=== PATIENT | female | born 1990 | race Caucasian/White ===

== ENCOUNTER → 2020-11-29 01:08 | Outpatient (CLI) | payer BC, SELFPAY ==
[2020-11-29 18:28] LABS: SARS-CoV-2 RNA PCR Negative
== END ==
PROVIDERS: PCP Family Medicine Sports Medicine; Visit Provider Internal Medicine Gastroenterology
DX: Z01.812 Encounter for preprocedural laboratory examination (principal); Z20.822 Contact with and (suspected) exposure to COVID-19
CPT/HCPCS: C9803; U0003; U0005

== ENCOUNTER 2020-12-02 01:28 | Day surgery (SDC) | payer BC, SELFPAY ==
[2020-11-24 12:44] VITALS: BMI 45.8
--- NOTE | 2020-12-02 09:50 | P.PNAN_ITS ---
Anes - Initial Pre Proc Eval Procedure: Operation Date: 12/02/20 13:00 Proposed Procedures p Esophagogastroduodenoscopy - Jose Blanton MD Date/Time: 12/02/20 09:50 Surgeon: Jose Blanton MD Pre Op Diagnosis: nausea, vomiting Patient Data Age: 30 Gender: F Height: 1.55 m Weight: 110 kg Allergies Allergy/AdvReac Type Severity Reaction Status Date / Time No Known Allergies Allergy Unverified 12/02/20 11:58 Home Medications Medication Instructions Recorded Confirmed Type sertraline 25 mg tablet 25 mg PO DAILY 11/18/20 12/02/20 History aripiprazole 5 mg PO DAILY 11/24/20 11/24/20 History Patient hx anesthesia problems: none Family hx anesthesia problems: none [facility] Past Medical History Medical History (Updated 12/02/20 @ 09:51 by Isac Hopper MD) Anxiety Depression Morbidly obese Social History Social History (Updated 11/18/20 @ 11:17 by Vira Kirkland CMA) Smoking status: Never smoker Alcohol intake: never Substance use: never Substance use type: does not use Living arrangements: with family Gender identity (if verbalized by the patient): Female Spiritual care concerns: No Anes - Eval Final PreProcedure Day of Procedure 12/02/20 09:50 Patient weight: obese Heart: regular rate and rhythm Lungs: clear to auscultation and normal air movement Airway: Mallampati scale class II Neurological: alert and oriented Last oral intake: >/= 8 hours ASA classification: III Emergent: no Anesthetic plan: proceed Anesthesia type and monitoring: general GIVS Informed Consent: The patient's anesthetic plan and its attendant risks and benefits were discussed with the patient/family/POA. Questions were solicited and answers provided to the satisfaction of the patient/family/POA.
[2020-12-02 12:00] VITALS: BP 109/56; PULSE 91; RESP 18; TEMP 36.7; O2SAT 100
[2020-12-02] MEDS: LACTATED RINGERS 1,000 ML 150 ML IV CONT (12:12)
--- NOTE | 2020-12-02 13:26 | WPDHPUPDATE1 ---
History and Physical Update Update Date/Time: 12/02/20 13:26 History and Physical has been reviewed, including an updated exam of the patient. There are NO changes in the patient's condition. Risks, benefits, and alternatives have been discussed and questions answered. Patient agrees to proceed with procedure.
[2020-12-02 13:50] VITALS: BP 85/49; PULSE 87; RESP 22; O2SAT 100
[2020-12-02 14:00] VITALS: BP 90/55; PULSE 83; RESP 16; O2SAT 100
[2020-12-02 14:10] VITALS: BP 107/66; PULSE 77; RESP 17; O2SAT 100
== END 2020-12-02 14:22 | disposition home or self-care (01) ==
PROVIDERS: PCP Family Medicine Sports Medicine; Visit Provider Internal Medicine Gastroenterology
PROC: 0DJ08ZZ Inspection of Upper Intestinal Tract, Via Natural or Artificial Opening Endoscopic (ICD-10-PCS; CPT 43235; principal; 2020-12-02 13:00)
DX: R11.0 Nausea (principal); K29.50 Unspecified chronic gastritis without bleeding; F41.8 Other specified anxiety disorders; E66.01 Morbid (severe) obesity due to excess calories; Z68.41 Body mass index [BMI] 40.0-44.9, adult
CPT/HCPCS: 43239; 88305; J2704; J7120

== ENCOUNTER 2021-03-14 20:15 | Emergency (ER) | payer BC, SELFPAY ==
--- NOTE | ~2021-03-14 | XR_ITS ---
XR chest 1V portable 03/14/2021 21:33 Indication: Shortness of breath. Covid. Procedure: AP portable chest Comparison: No prior studies for comparison. Findings: Patchy bilateral infiltrates of the mid and lower lung zones. No pleural effusion or pneumo thorax. No acute osseous abnormality. Impression: 1: Patchy bilateral infiltrates of the mid and lower lung zones, suspicious for pneumonia. Reviewed, dictated and finalized at location A. Impression: 1: Patchy bilateral infiltrates of the mid and lower lung zones, suspicious for pneumonia.
[2021-03-14 20:31] VITALS: BP 129/59; PULSE 93; RESP 16; TEMP 36.4; O2SAT 98
--- NOTE | 2021-03-14 20:33 | ECG_ITS ---
Measurements Intervals [place] Rate: 91 P: 44 NE: 125 QRS: 36 QRSD: 82 T: 7 QT: 344 QTc: 425 Interpretive Statements SINUS RHYTHM VENTRICULAR PREMATURE COMPLEX LOW QRS VOLTAGE IN PRECORDIAL LEADS BORDERLINE T WAVE ABNORMALITY- ANT/INF LEADS BASELINE ARTIFACT- I, II, III BORDERLINE ECG Electronically Signed On 03-15-2021 6:04:41 CDT by Lon Santacruz D.O.
[2021-03-14 20:41] LABS: Basophils Percent Auto 0.4 % (0.2-1.2); Eosinophils Absolute Auto 0.1 K/mm3 (0-0.3); Eosinophils Percent Auto 1.8 % (0-4.4); Hematocrit 42.4 % (37.0-47.0); Hemoglobin 14.2 g/dL (12.0-15.0); Immature Granulocyte Absolute 0.02 K/mm3 (0.00-0.031); Immature Granulocyte Percent A 0.4 % (0-0.5); Lymphocytes Absolute Auto 3.02 K/mm3 (0.9-3.2); Lymphocytes Percent Auto 55.7 % (18.3-44.2); Mean Corpuscular HGB Conc 33.5 g/dl (32-36); Mean Corpuscular Hemoglobin 29.2 pg (26-34); Mean Corpuscular Volume 87.1 fl (80-100); Mean Platelet Volume 11.1 fl (7.4-10.4); Monocytes Absolute Auto 0.3 K/mm3 (0.1-0.6); Monocytes Percent Auto 6.1 % (2.6-8.5); Neutrophils Absolute Auto 1.9 K/mm3 (1.3-6.7); Neutrophils Percent Auto 35.6 % (45.5-73.1); Platelet Count Result 194 k/mm3 (150-375); Red Blood Count 4.87 M/mm3 (4.2-5.4); Red Cell Distribution Width 12.3 % (11.5-14.5); White Blood Count 5.4 K/mm3 (4.5-10.0)
[2021-03-14 20:50] LABS: Anion Gap 7 mmol/L (8-16); Blood Urea Nitrogen 11 mg/dL (7-17); Calcium 9.7 mg/dL (8.4-10.2); Carbon Dioxide 25 mmol/L (22-30); Chloride 111 mmol/L (98-107); Estimated CRCL calculation 101 ml/min; Estimated Glomerular Filt Rate > 60; Glucose 92 mg/dL (65-105); Potassium 3.9 mmol/L (3.4-5.0); Sodium 143 mmol/L (137-145)
--- NOTE | 2021-03-14 22:00 | ED.SOB ---
HPI - SOB/Dyspnea General Chief Complaint: Shortness of Breath/Dyspnea Stated Complaint: shortness of breath Time Seen by Provider: 03/14/21 21:38 History of Present Illness HPI Narrative: Mild shortness of breath for several days, feeling worse. Associated with mild pleuritic chest pain. She is also feeling fatigued. She was diagnosed with COVID-19 11 days ago. No fever, nausea, vomiting, diarrhea. Related Data Home Medications Medication Instructions Recorded Confirmed sertraline 25 mg tablet 25 mg PO DAILY 11/18/20 12/02/20 aripiprazole 5 mg PO DAILY 11/24/20 11/24/20 Allergies Allergy/AdvReac Type Severity Reaction Status Date / Time No Known Allergies Allergy Unverified 12/02/20 11:58 Review of Systems Review of Systems: All systems reviewed & are unremarkable except as noted in HPI and below Constitutional: Constitutional: Reports fever(s) Eyes: Eyes: Reports no additional eye complaints ENT: Denies sore throat Respiratory: Respiratory: Reports as per HPI Gastrointestinal: Gastrointestinal: Reports as per HPI Neurologic: Reports system reviewed and no additional complaints, except as documented PMF Past Medical History Medical History Anxiety Depression Morbidly obese Nausea Social History Social History Smoking status: Never smoker Alcohol intake: never Substance use: never Substance use type: does not use Gender identity (if verbalized by the patient): Female Spiritual care concerns: No Exam Const: General: healthy appearing, no acute distress and alert Orientation/consciousness: patient oriented x3 HENMT: Head: normal to inspection Neck: Neck: normal visual inspection and no lymphadenopathy Resp: Effort & Inspection: normal respiratory effort Auscultation: no rales, no rhonchi and wheezes Cardio: Jugular venous distension: no JVD Rate: regular rate Rhythm: regular rhythm Heart sounds: no murmurs GI: Inspection: non-distended GI Palp: Yes Soft to palpation and No Tenderness to palpation present (GI) Skin: General skin exam: normal color Neuro: General: patient oriented x3 and moves all extremities Speech: normal speech Extrem: General: no edema Psych: Appearance: well kempt Course Vital Signs Vital signs: Vital Signs Temperature 36.4 C 03/14/21 20:31 Pulse Rate 93 03/14/21 20:31 Respiratory Rate 16 03/14/21 20:31 Blood Pressure 129/59 L 03/14/21 20:31 Pulse Oximetry 98 03/14/21 20:31 Temperature 36.4 C 03/14/21 20:31 Pulse Rate 74 03/14/21 23:00 Respiratory Rate 20 03/14/21 23:00 Blood Pressure 127/60 03/14/21 23:00 Pulse Oximetry 98 03/14/21 23:00 MDM - SOB/Dyspnea MDM Narrative Medical decision making narrative: COVID-19 pneumonia. Normal vitals signs. Differential Diagnosis Differential diagnosis: Likely community acquired pneumonia and other (COVID) Medical Records Attestation: I reviewed the patient's medical records. Lab Data Result diagrams: 03/14/21 20:36 03/14/21 20:36 Labs: Lab Results 03/14/21 03/14/21 Range/Units 20:36 20:36 WBC 5.4 (4.5-10.0) K/mm3 RBC 4.87 (4.2-5.4) M/mm3 Hgb 14.2 (12.0-15.0) g/dL Hct 42.4 (37.0-47.0) % MCV 87.1 (80-100) fl MCH 29.2 (26-34) pg MCHC 33.5 (32-36) g/dl RDW 12.3 (11.5-14.5) % Plt Count 194 (150-375) k/mm3 MPV 11.1 H (7.4-10.4) fl Immature Gran % (Auto) 0.4 (0-0.5) % Neut % (Auto) 35.6 L (45.5-73.1) % Lymph % (Auto) 55.7 H (18.3-44.2) % Mobile % (Auto) 6.1 (2.6-8.5) % Eos % (Auto) 1.8 (0-4.4) % Baso % (Auto) 0.4 (0.2-1.2) % Lymph # (Auto) 3.02 (0.9-3.2) K/mm3 Mobile # (Auto) 0.3 (0.1-0.6) K/mm3 Eos # (Auto) 0.1 (0-0.3) K/mm3 Baso # (Auto) 0.0 (0.0-0.1) K/mm3 Abs Immat Gran (auto) 0.02 (0.00-0.031) K/mm3 Absolute Neuts (auto) 1
[2021-03-14] MEDS: KETOROLAC (*BKC) 60 MG/2 ML VIAL IM (22:16)
[2021-03-14] MEDS: predniSONE 20 MG TABLET 60 MG PO (22:17)
[2021-03-14] MEDS: IPRATROPIUM BR 0.02% INH SOLN 0.5 MG/2.5 ML VIAL INHALATION (22:19)
[2021-03-14] MEDS: ALBUTEROL SULFATE NEB 2.5 MG/0.5 ML INH 5 MG INHALATION (22:19)
[2021-03-14 22:20] VITALS: PULSE 79; RESP 20
[2021-03-14 23:00] VITALS: BP 127/60; PULSE 74; RESP 20; O2SAT 98
== END 2021-03-14 23:03 | disposition home or self-care (01) ==
PROVIDERS: Emergency Medicine; Emergency Provider Emergency Medicine; PCP Family Medicine Sports Medicine
DX: U07.1 COVID-19 (principal); J12.82 Pneumonia due to coronavirus disease 2019; F41.9 Anxiety disorder, unspecified; F32.9 Major depressive disorder, single episode, unspecified; E66.01 Morbid (severe) obesity due to excess calories; Z68.41 Body mass index [BMI] 40.0-44.9, adult; I49.3 Ventricular premature depolarization; R94.31 Abnormal electrocardiogram [ECG] [EKG]
CPT/HCPCS: 36415; 71045; 80048; 85025; 93005; 94640; 96372; 99284; J1885; J7512

== ENCOUNTER 2021-04-17 07:32 | Emergency (ER) | payer BC, SELFPAY ==
[2021-04-17 07:39] VITALS: BP 94/70; PULSE 96; RESP 18; TEMP 36.2; O2SAT 100
[2021-04-17 08:15] VITALS: PULSE 97; RESP 18; O2SAT 100
[2021-04-17 08:16] VITALS: BP 100/65; PULSE 88; RESP 14; O2SAT 100
--- NOTE | 2021-04-17 08:50 | ED.GENADULT ---
HPI - General Adult General Chief complaint: Neuro Symptoms/Deficit Stated complaint: facial tingling/sob and ear pain Time Seen by Provider: 04/17/21 08:25 Source: patient and RN notes reviewed Mode of arrival: ambulatory Limitations: no limitations History of Present Illness HPI narrative: This is a 30 year old female who presents for evaluation of left ear pain. Patient reports she has had 2 days left ear pain and swelling. She has been using over the counter ear drops without improvement. She denies fever or chills. She reports sore throat. She also was concerned because last night she had tingling to her entire face. She denies any focal deficits. She also denies weakness. She deneis swimming. She denies chest pain, sob, anxiety. Related Data Home Medications Medication Instructions Recorded Confirmed sertraline 25 mg tablet 25 mg PO DAILY 11/18/20 12/02/20 aripiprazole 5 mg PO DAILY 11/24/20 11/24/20 topiramate 04/17/21 Allergies Allergy/AdvReac Type Severity Reaction Status Date / Time No Known Allergies Allergy Unverified 12/02/20 11:58 Review of Systems Review of Systems: All systems reviewed & are unremarkable except as noted in HPI and below PMFSH Past Medical History Medical History Anxiety Depression Morbidly obese Nausea Social History Social History Smoking status: Never smoker Alcohol intake: never Substance use: never Substance use type: does not use Gender identity (if verbalized by the patient): Female Spiritual care concerns: No Exam Const: General: no acute distress and alert Nutritional Appearance: obese Orientation/consciousness: patient oriented x3 HENMT: Head: normocephalic and atraumatic Ears: TM normal on the right, Abnormal EAC present edema and EAC tenderness on the left and other (left TM dull) Face and sinus: normal facial exam, sinuses nontender and face symmetric Mouth: Yes Normal oral and palatal mucosa present, Yes lip normal, Yes tongue normal, Yes oropharynx normal and Yes moist mucous membranes Throat: posterior oropharynx normal, tonsils normal and uvula midline Eyes: EOM: EOMs intact bilaterally Resp: Effort & Inspection: normal respiratory effort and no retractions Auscultation: clear to auscultation bilaterally Cardio: Rate: regular rate Rhythm: regular rhythm Heart sounds: no murmurs GI: GI Palp: Yes Soft to palpation, No Tenderness to palpation present (GI) and No Guarding due to palpation present (GI) Auscultation: normal bowel sounds Neuro: General: patient oriented x3 and moves all extremities Course Reevaluation(s) Reevaluation #1: I Discussed with patient that she will be treated for otitis external and otitis media. facial symmetry present, no focal deficit Date: 04/17/21 Time: 09:15 Vital Signs Vital signs: Vital Signs Temperature 97.2 F L 04/17/21 07:39 Pulse Rate 96 04/17/21 07:39 Respiratory Rate 18 04/17/21 07:39 Blood Pressure 94/70 L 04/17/21 07:39 Pulse Oximetry 100 04/17/21 07:39 Temperature 97.2 F L 04/17/21 09:32 Pulse Rate 99 04/17/21 09:30 Respiratory Rate 15 04/17/21 09:30 Blood Pressure 99/69 L 04/17/21 09:30 Pulse Oximetry 100 04/17/21 09:30 Medical Decision Making Vital Signs Vital Signs: Vital Signs Temperature 97.2 F L 04/17/21 07:39 Pulse Rate 96 04/17/21 07:39 Respiratory Rate 18 04/17/21 07:39 Blood Pressure 94/70 L 04/17/21 07:39 Pulse Oximetry 100 04/17/21 07:39 Temperature 97.2 F L 04/17/21 09:32 Pulse Rate 99 04/17/21 09:30 Respiratory Rate 15 04/17/21 09:30 Blood Pressure 99/69 L 04/17/21 09:30 Pulse Oximetry 100 04/17/21 09:30 Discharge Plan Discharge Clinical Impression: Acute otitis externa of left ear Qualifiers: Otitis externa type: unspecified type Qualified Code(s): H60.502 - Uns
[2021-04-17] MEDS: IBUPROFEN 400 MG TABLET 800 MG PO (09:04)
[2021-04-17 09:30] VITALS: BP 99/69; PULSE 99; RESP 15; O2SAT 100
[2021-04-17 09:32] VITALS: TEMP 36.2
== END 2021-04-17 09:32 | disposition home or self-care (01) ==
PROVIDERS: Emergency Provider General Practice; PCP Family Medicine Sports Medicine
DX: H60.502 Unspecified acute noninfective otitis externa, left ear (principal); F41.9 Anxiety disorder, unspecified; F32.9 Major depressive disorder, single episode, unspecified; E66.01 Morbid (severe) obesity due to excess calories; Z68.41 Body mass index [BMI] 40.0-44.9, adult
CPT/HCPCS: 99283; A9270

== ENCOUNTER 2022-05-12 09:00 | Outpatient (RCR) | payer BC, SELFPAY | END 2022-07-31 10:20 | disposition home or self-care (01) | LOC: ANHDMC 09:00 | PROVIDERS: PCP Family Medicine Sports Medicine; Visit Provider Obstetrics & Gynecology | DX: O24.319 Unspecified pre-existing diabetes mellitus in pregnancy, unspecified trimester (principal); Z3A.00 Weeks of gestation of pregnancy not specified; Z71.89 Other specified counseling | CPT/HCPCS: G0108 ==

== ENCOUNTER 2022-06-02 23:30 | Observation (INO) | payer BC, SELFPAY ==
[2022-06-02 23:47] VITALS: BP 102/62; PULSE 89
[2022-06-03] VITALS (9 sets, daily range): BP systolic 93–107; BP diastolic 44–55; PULSE 76–89; BMI 49.1
--- NOTE | 2022-06-03 02:00 | OBADM ---
This patient, Viry Hi, admitted to the OB room Labor/Delivery/Recovery 120 for observation. Patient/family oriented to hospital policies and general routines including ID bracelet, bed and alarms, visiting hours, pain management, procedures, bathroom and other care routines, personal items, smoking policy, room service/diet, and visiting hours. Patient/Family are encouraged to report perceived risks to care and to ask questions if they do not understand what they are told or what they should do.
--- NOTE | 2022-07-03 11:49 | PM.OBTRLD ---
OB - Triage/Final Diagnosis Visit Information Comments/Additional reasons for admission: I have assessed the risk for this patient, Viry Hi, and determined that she would benefit from observation care. Final Diagnosis (1) Back pain affecting : Code(s): O99.891 - Other specified diseases and conditions complicating ; M54.9 - Dorsalgia, unspecified Status: Acute
== END 2022-06-03 02:20 | disposition home or self-care (01) ==
PROVIDERS: Admitting Provider Obstetrics & Gynecology; PCP Family Medicine Sports Medicine; Visit Provider Obstetrics & Gynecology
DX: O99.891 Other specified diseases and conditions complicating pregnancy (principal); M54.9 Dorsalgia, unspecified; R10.9 Unspecified abdominal pain; Z3A.36 36 weeks gestation of pregnancy
CPT/HCPCS: G0378; G0379

== ENCOUNTER 2022-06-10 10:54 | Outpatient (CLI) | payer BC, SELFPAY ==
--- NOTE | 2022-06-11 06:47 | PM.OBTRLD ---
OB - Triage/Final Diagnosis Visit Information Date of evaluation: 06/10/22 Reason for evaluation: other (Leaking fluid) Comments/Additional reasons for admission: I have assessed the risk for this patient, Viry Kristopher Pateles, and determined that she would benefit from observation care.
== END 2022-06-10 11:40 | disposition home or self-care (01) ==
LOC: ANHOBOP 11:38 → ANHLDR 11:39
PROVIDERS: PCP Family Medicine Sports Medicine; Visit Provider Obstetrics & Gynecology
DX: O41.8X90 Other specified disorders of amniotic fluid and membranes, unspecified trimester, not applicable or unspecified (principal); Z3A.00 Weeks of gestation of pregnancy not specified
CPT/HCPCS: 59025; 84112; 99199

== ENCOUNTER 2022-06-16 09:40 | Outpatient (RCR) | payer BC, SELFPAY ==
[2022-05-12 12:06] VITALS: BP 105/59; PULSE 98
[2022-05-19 11:05] VITALS: BP 96/64; PULSE 87
[2022-05-26 10:16] VITALS: BP 116/65; PULSE 90
[2022-05-31 09:51] VITALS: BP 103/49; PULSE 100
[2022-06-08 14:01] VITALS: BP 112/55; PULSE 108
[2022-06-16 10:40] VITALS: BP 94/51; PULSE 93
== END 2022-07-19 10:11 | disposition home or self-care (01) ==
LOC: ANHOBOP 09:40
PROVIDERS: PCP Family Medicine Sports Medicine; Visit Provider Obstetrics & Gynecology
DX: O24.419 Gestational diabetes mellitus in pregnancy, unspecified control (principal); Z86.16 Personal history of COVID-19; Z3A.33 33 weeks gestation of pregnancy; Z3A.35 35 weeks gestation of pregnancy; Z3A.36 36 weeks gestation of pregnancy; Z3A.37 37 weeks gestation of pregnancy
CPT/HCPCS: 59025

== ENCOUNTER 2022-06-17 10:59 | Outpatient (CLI) | payer BC, SELFPAY ==
[2022-06-17 11:23] LABS: Hemoglobin 10.2 g/dL (12.0-15.0); Mean Corpuscular Hemoglobin 30.1 pg (26-34); Mean Corpuscular Volume 88.5 fl (80-100); Mean Platelet Volume 11.1 fl (7.4-10.4); Platelet Count Result 192 k/mm3 (150-375); Red Blood Count 3.39 M/mm3 (4.2-5.4); Red Cell Distribution Width 14.5 % (11.5-14.5); White Blood Count 11.7 K/mm3 (4.5-10.0)
[2022-06-19 07:34] LABS: Rapid Plasma Reagin Non-Reactive (NonReactive)
== END 2022-06-17 11:00 | disposition home or self-care (01) ==
LOC: ANHLAB 11:01
PROVIDERS: PCP Family Medicine Sports Medicine; Visit Provider Obstetrics & Gynecology
DX: Z34.93 Encounter for supervision of normal pregnancy, unspecified, third trimester (principal); Z3A.00 Weeks of gestation of pregnancy not specified
CPT/HCPCS: 36415; 85027; 86592; 86850; 86900; 86901

== ENCOUNTER 2022-06-19 10:05 | Inpatient (IN) | payer BC, SELFPAY ==
--- NOTE | 2022-05-30 13:06 | PC.NURSE ---
Verified with OR schedule and patient--C/S with bilateral tubal ligation on 06/19/22 at 1200
[2022-06-19] VITALS (40 sets, daily range): BP systolic 85–151; BP diastolic 41–108; PULSE 55–99; RESP 11–18; TEMP 36.2–36.9; O2SAT 76–100; BMI 48.4
[2022-06-19] MEDS: LACTATED RINGERS 1,000 ML 125 ML IV CONT (10:49)
--- NOTE | 2022-06-19 10:51 | LDADM ---
This patient, Viry Hi, was admitted to Labor/Delivery/Recovery 119 on 06/19/22 at 10:05. Plans for labor, pain management and were discussed with patient. Patient/family oriented to hospital policies and general routines including ID bracelet, bed and alarms, visiting hours, pain management, procedures, bathroom and other care routines, personal items, smoking policy, room service/diet and guest tray routines, security routines, and visiting hours. Patient/Family are encouraged to report perceived risks to care and to ask questions if they do not understand what they are told or what they should do. See OBIX for further documentation.
--- NOTE | 2022-06-19 11:00 | P.PNAN_ITS ---
Anes - Initial Pre Proc Eval Procedure: Operation Date: 06/19/22 12:00 Proposed Procedures p Repeat Section with Bilateral Tubal Ligation - Kumar Avila MD Date/Time: 06/19/22 11:00 Surgeon: Kumar Avila MD Pre Op Diagnosis: C/S Patient Data Age: 31 Gender: F Height: 1.55 m Weight: 116.2 kg Last Vital Signs O2 Del Method Room Air 06/19/22 10:51 Allergies Allergy/AdvReac Type Severity Reaction Status Date / Time No Known Allergies Allergy Verified 05/30/22 12:47 Home Medications Medication Instructions Recorded Confirmed Type ferrous sulfate 325 mg (65 mg 325 mg PO DAILY 05/12/22 05/31/22 History iron) tablet vit no.95-ferrous 1 tablet PO DAILY 05/12/22 05/31/22 History fumarate 28 mg-folic acid 800 mcg tablet () risperidone 0.5 mg tablet 0.5 mg PO BID 05/12/22 05/31/22 History sertraline 100 mg tablet 100 mg PO HS 05/12/22 05/31/22 History Patient hx anesthesia problems: none Family hx anesthesia problems: none Results Review: All pre-operative results and documents have been reviewed as part of the pre- operative evaluation. [facility] Past Medical History Medical History (Updated 06/19/22 @ 11:00 by Isac Hopper MD) Anxiety Depression Diabetes Hyperlipidemia Morbidly obese Nausea Family History Family History (Updated 05/30/22 @ 12:50 by Jose Roberto Michel RN) Grandparent Coronary stent patent Heart attack Diabetes mellitus Grandparent Lung cancer Other Patient's mother is Social History Social History Smoking status: Never smoker Alcohol intake: never Substance use: never Substance use type: does not use Gender identity (if verbalized by the patient): Female Spiritual care concerns: No Anes - Eval Final PreProcedure Day of Procedure 06/19/22 11:00 Patient weight: morbidly obese Heart: regular rate and rhythm Lungs: clear to auscultation and normal air movement Airway: Mallampati scale class II Neurological: alert and oriented Last oral intake: >/= 8 hours ASA classification: III Emergent: no Anesthetic plan: proceed Anesthesia type and monitoring: regional spinal Results Review: All pre-operative results and documents have been reviewed as part of the pre- operative evaluation. Informed Consent: The patient's anesthetic plan and its attendant risks and benefits were discussed with the patient/family/POA. Questions were solicited and answers provided to the satisfaction of the patient/family/POA.
[2022-06-19 11:55] LABS: Glucose Point of Care 70 mg/dl (65-105)
--- NOTE | 2022-06-19 11:59 | PM.IMHP ---
H&P: HPI History of Present Illness Date/Time: 06/19/22 11:59 Chief Complaint: Here for c section. Narrative: 31 y/o at 39 1/7 weeks here for repeat . Also desires permanent contraception. GBS pos. A1 DM, well controlled. Review of Systems Review of Systems: All systems reviewed & are unremarkable except as noted in HPI and below PMFSH Past Medical History Medical History (Updated 06/19/22 @ 12:04 by Kumar Avila MD) Anxiety Depression Diabetes Hyperlipidemia Morbidly obese Nausea Surgical History Surgical History (Updated 06/19/22 @ 12:02 by Kumar Avila MD) History of delivery Family History Family History Grandparent Coronary stent patent Heart attack Diabetes mellitus Grandparent Lung cancer Other Patient's mother is Social History Social History Smoking status: Never smoker Alcohol intake: never Substance use: never Substance use type: does not use Gender identity (if verbalized by the patient): Female Spiritual care concerns: No Meds Home Medications and Allergies Home Medications Medication Instructions Recorded Confirmed Type ferrous sulfate 325 mg (65 mg 325 mg PO DAILY 05/12/22 05/31/22 History iron) tablet vit no.95-ferrous 1 tablet PO DAILY 05/12/22 05/31/22 History fumarate 28 mg-folic acid 800 mcg tablet () risperidone 0.5 mg tablet 0.5 mg PO BID 05/12/22 05/31/22 History sertraline 100 mg tablet 100 mg PO HS 05/12/22 05/31/22 History Allergies Allergy/AdvReac Type Severity Reaction Status Date / Time No Known Allergies Allergy Verified 05/30/22 12:47 Vital Signs Vital Signs - 24 hr 06/19/22 10:51 06/19/22 10:59 Pulse Rate 90 Blood Pressure 108/68 Oxygen Delivery Room Air Exam Const: Orientation/consciousness: patient oriented x3 Other: Well-developed, well-nourished female in no acute distress. Neck: Thyroid: thyroid normal Lymphatic: no lymphadenopathy noted (in neck, axilla or inguinal nodes) Resp: Effort & Inspection: normal respiratory effort Auscultation: clear to auscultation bilaterally Cardio: Rate: regular rate Rhythm: regular rhythm Heart sounds: S1 normal heart sound present and S2 normal heart sound present GI: Other: ABD: Soft, nontender, nondistended, gravid. NST reactive. TOCO: no contractions. No guarding or rebound tenderness. No hepatosplenomegaly. : General: Yes no CVA tenderness Other: Cervix closed. Back/Spine/Pelvis: Back: no CVA tenderness Skin: General skin exam: normal color and no rashes or lesions noted Neuro: General: patient oriented x3 Extrem: Other: Extremities: nontender with no edema Psych: Mental Status: mental status grossly normal Affect: normal affect Assessment and Plan Assessment and plan (1) Gestational diabetes mellitus: Code(s): O24.419 - Gestational diabetes mellitus in , unspecified control Status: Acute Assessment and Plan: A: IUP at 39 1/7 weeks, with prior , desiring repeat. Also desiring permanent contraception. P: Offered repeat LTCS with concurrent bilateral tubal ligation. She understands there are temporary methods of contraception available to her. She understands that there are nonsurgical options as well as surgical options. She understands that tubal ligation will render her permanently sterile. She understands that there is a failure rate associated with tubal ligation, as well as an inherent ectopic gestation risk. Furthermore, she understands risks of surgery to include risks of anesthesia, risks of pain, infection, bleeding, blood products, thromboembolic phenomena and damage to adjacent structures such as bowel, bladder, ureters, blood vessels and nerves. She understands all these risks and elects to proceed with siddiqi
[2022-06-19] MEDS: LACTATED RINGERS 1,000 ML 999 ML IV CONT (12:01)
--- NOTE | 2022-06-19 12:04 | WPDHPUPDATE1 ---
History and Physical Update Update Date/Time: 06/19/22 12:04 History and Physical has been reviewed, including an updated exam of the patient. There are NO changes in the patient's condition. Risks, benefits, and alternatives have been discussed and questions answered. Patient agrees to proceed with procedure.
[2022-06-19] MEDS: KETOROLAC 30 MG/ML VIAL (*BKC) IV PUSH (13:03)
--- NOTE | 2022-06-19 13:13 | PM.OBPRVD ---
OB - Delivery Note Procedure Delivery date: 06/19/22 Procedure: Procedures Operation Date: 06/19/22 12:00 <No data on this case meets the specified criteria> Repeat low transverse delivery with concurrent bilateral tubal ligation via modified [place] technique Events: Gestational Diabetes Delivery monitor: External FHT and External Uterine Route of delivery: Specimen: Yes (cord blood, placenta, segments of bilateral Fallopian tubes) Quantitative Blood Loss (ml): 750 Anesthesia type: Spinal Disposition: PACU Complications: None Narrative: The patient was taken to the operating room where she was prepared and draped in the usual sterile fashion in dorsal supine position with a leftward tilt. She received cefazolin preoperatively. Spinal anesthesia was found to be adequate. A Pfannenstiel skin incision was made along the previous scar line and was carried through to the underlying layer of the fascia. The fascia was incised in the midline and the incision was extended laterally. The fascia was dissected free of the underlying rectus muscles. The rectus muscles were in the midline. The peritoneum was identified, tented up and entered sharply. The peritoneal incision was extended superiorly and inferiorly with good visualization of the bladder. The bladder blade was placed. The vesicouterine peritoneum was identified, tented up and entered sharply. The incision was extended laterally and the bladder flap was developed. The bladder blade was replaced. The uterus was then incised sharply in a transverse fashion along the lower uterine segment. The incision was extended laterally. The infant's head was delivered atraumatically to the sterile field, followed by the body. The nose and mouth were bulb suctioned. After a delay, the cord was clamped and cut. The was handed off the field. Cord blood was collected. The placenta was removed manually and was passed off the field. The uterus was exteriorized and cleared of all clots and debris. The uterine incision was reapproximated using 0 Monocryl in a running, locked fashion. Excellent hemostasis resulted as did excellent reapproximation of the normal anatomy. The left fallopian tube was then identified by following it out to the fimbriated end. It was grasped in the midportion with a Ruben clamp and a loop of tube was ligated with a free tie of 0 plain gut. The tubal segment was then transected and the specimen was passed off to be sent to pathology. Hemostasis was excellent. Attention was turned to the right fallopian tube which was similarly identified, ligated and transected. Once again, excellent hemostasis resulted. The uterus was returned the abdomen. The pelvis was irrigated copiously with warmed normal saline. The bladder flap was treated with Hemaderm. Rigorous hemostasis was assured. The fascial layer was reapproximated using 0 Vicryl in a running fashion. Two interrupted sutures of 2-0 plain gut were used to reapproximate the subcutaneous tissue. The skin was closed with a running, subcuticular stitch of 4 0 Vicryl. Dermaflex was applied externally. Sponge, lap, needle and instrument counts were correct. The patient was taken to the recovery room in stable condition. The went to the nursery in stable condition. I was present and scrubbed the entire procedure. [place] Baby Date of : 06/19/22 Time of : 12:38 Weeks of gestation at delivery: 39 gender: Female Weight (pounds): 8 Weight (ounces): 5 presentation: vertex Placenta delivery description: Manual Removal and Normal Configuration Cord Vessel Description: 3 Vessels and Delayed Cord Clamping score one minute: 8 score five minutes: 9
--- NOTE | 2022-06-19 13:17 | PM.OBDSVD ---
DS: Admitting Diagnosis Discharge Date 06/21/22 Admitting Diagnosis IUP at 39 weeks GDM GBS colonization Prior , desires repeat Desired sterility DS: Discharge Diagnosis Discharge Diagnosis (1) GBS (group B Streptococcus carrier), +RV culture, currently : Code(s): O99.820 - Streptococcus B carrier state complicating Status: Acute (2) Unwanted fertility: Code(s): Z30.09 - Encounter for other general counseling and advice on contraception Status: Acute (3) Gestational diabetes mellitus: Code(s): O24.419 - Gestational diabetes mellitus in , unspecified control Status: Acute (4) History of delivery: Code(s): Z98.891 - History of uterine scar from previous surgery Status: Acute OB - DS: Summary OB Procedures : None OB Procedures Intrapartum: and Tubal ligation OB Procedures: : None Peripartum Data Procedures: Procedures Operation Date: 06/19/22 12:00 <No data on this case meets the specified criteria> Time Spent with Patient Time attestation: Total time spent providing and/or coordinating discharge services: DS: Data Data Completed and Pending Labs on day of discharge: Labs from last 24 hours 06/19/22 11:53 POC Capillary Glucose 70 Discharge Plan Discharge Attending physician on discharge: Kumar Avila Discharging Clinician: Kumar Avila Patient Disposition: Home, Self-Care Activity: may shower, may drive after 2 weeks and pelvic rest Diet: regular Wound Care Instructions: incision open to air Discharge Instructions: Call or return if temperature above 100.4? F, increased abdominal pain, increased vaginal bleeding or any new problems. Stand Alone Forms: General Discharge Information Follow-up/Referrals: Kumar Avila MD [Physician] - 4 Weeks Discharge Medications: New ibuprofen 600 mg tablet 600 mg PO Q6H PRN (Reason: cramps) Qty: 30 0RF ferrous sulfate 325 mg (65 mg iron) tablet 325 mg PO DAILY Qty: 30 0RF hydrocodone-acetaminophen 5-325 mg tablet 1 - 2 tablet PO Q6H PRN (Reason: pain) Qty: 30 0RF Continued sertraline 100 mg Tablet 100 mg PO HS ferrous sulfate 325 mg (65 mg iron) Tablet 325 mg PO DAILY risperidone 0.5 mg Tablet 0.5 mg PO BID PNV cmb#95-ferrous fumarate-FA [] 28 mg iron- 800 mcg Tablet 1 tablet PO DAILY Date of admission: 06/19/22 10:05 Primary Care Provider: Roya,Chuck Devlin Admitting Provider: Kumar Avila Attending physician on admission: Kumar Avila Condition: Stable
[2022-06-19] MEDS: OXYTOCIN 30 UNITS/NS 500 ML 30 UNITS/500 ML BAG 125 UNITS IV CONT (15:05)
--- NOTE | 2022-06-19 15:30 | PC.NURSE ---
Patient transferred to post room #284 via stretcher. Support person present. Oriented to unit, room, information board, rooming in, admission packet and security measures. Patient verbalizes understanding.
[2022-06-19] MEDS: ONDANSETRON INJ 4 MG/2 ML VIAL IV PUSH (17:23)
[2022-06-19] MEDS: diphenhydrAMINE HCl INJ 50 MG/ML VIAL 25 MG IV PUSH (19:16)
[2022-06-19] MEDS: IBUPROFEN 600 MG TABLET PO (19:31)
[2022-06-19] MEDS: HYDROcodone/acetaminophen (*CRX) 10-325 MG TABLET 1 TAB PO (19:34)
[2022-06-19] MEDS: DEXTROSE 5%/0.45% SOD CHL 1,000 ML 125 ML IV CONT (19:35)
[2022-06-19] MEDS: SIMETHICONE 80 MG TAB.CHEW PO (20:58)
[2022-06-20] VITALS: BP 107/72; PULSE 98; RESP 16; TEMP 36.8
[2022-06-20 04:00] VITALS: BP 108/62; PULSE 98; RESP 18; TEMP 36.2
[2022-06-20] MEDS: SIMETHICONE 80 MG TAB.CHEW PO ×2 (04:12→20:32)
[2022-06-20] MEDS: IBUPROFEN 600 MG TABLET PO ×3 (04:12→20:28)
[2022-06-20] MEDS: HYDROcodone/acetaminophen (*CRX) 10-325 MG TABLET 1 TAB PO ×4 (04:13→20:32)
[2022-06-20 05:59] LABS: Basophils Percent Auto 0.2 % (0.2-1.2); Eosinophils Percent Auto 0.3 % (0-4.4); Hematocrit 25.6 % (37.0-47.0); Hemoglobin 8.7 g/dL (12.0-15.0); Immature Granulocyte Absolute 0.14 K/mm3 (0.00-0.031); Immature Granulocyte Percent A 1.6 % (0-0.5); Lymphocytes Absolute Auto 1.04 K/mm3 (0.9-3.2); Lymphocytes Percent Auto 11.7 % (18.3-44.2); Mean Corpuscular Volume 88.3 fl (80-100); Mean Platelet Volume 12.5 fl (7.4-10.4); Monocytes Absolute Auto 0.6 K/mm3 (0.1-0.6); Monocytes Percent Auto 6.5 % (2.6-8.5); Neutrophils Absolute Auto 7.1 K/mm3 (1.3-6.7); Neutrophils Percent Auto 79.7 % (45.5-73.1); Platelet Count Result 166 k/mm3 (150-375); Red Cell Distribution Width 14.6 % (11.5-14.5); White Blood Count 8.9 K/mm3 (4.5-10.0)
[2022-06-20 08:05] VITALS: BP 102/62; PULSE 88; RESP 18; TEMP 36.4; O2SAT 99
[2022-06-20] MEDS: DOCUSATE SODIUM 100 MG CAPSULE PO ×2 (08:12→15:38)
[2022-06-20] MEDS: POLYSACCHARIDE IRON COMPLEX 150 MG CAPSULE PO ×2 (08:12→15:38)
--- NOTE | 2022-06-20 08:37 | WPDANLDPN2 ---
Anes-Prog Note L&D Date/Time: 06/20/22 08:37 Comfortable throughout: section Neuraxial method: spinal Epidural/Spinal procedure site: clean & non-tender Neuro status: Neuro function grossly intact. Cardiovascular status: normal Respiratory status: normal Airway patency: baseline Mental status: baseline Post-Op hydration status: normal Vital Signs: Last Vital Signs Temp 36.2 C L 06/20/22 04:00 Pulse 98 06/20/22 04:00 Resp 18 06/20/22 04:00 BP 108/62 06/20/22 04:00 Pulse Ox 98 06/19/22 15:45 O2 Del Method Room Air 06/20/22 04:00 Pain score (VAS): 10/31 I/O: Intake & Output 06/19/22 06/20/22 06/20/22 23:59 07:59 15:59 Intake Total 300 4000 Output Total 200 2500 Balance 100 1500 Post-procedural complaints: none Patient feedback: Patient satisfied with anesthetic care.
--- NOTE | 2022-06-20 08:37 | WPDANLDNPN2 ---
Anes-Prog Note L&D-Neuraxial Date/Time: 06/20/22 08:37 Neuraxial medications: intrathecal PF morphine Opiod-related complaints: none Patient feedback: Patient satisfied with post-operative pain management.
--- NOTE | 2022-06-20 08:42 | P.PNAN_ITS ---
Anes - Prog Note Post-Op Date/Time: 06/20/22 08:42 Cardiovascular status: normal Respiratory status: normal Airway patency: baseline Mental status: baseline Post-Op hydration status: normal Vital Signs: Last Vital Signs Temp 36.2 C L 06/20/22 04:00 Pulse 98 06/20/22 04:00 Resp 18 06/20/22 04:00 BP 108/62 06/20/22 04:00 Pulse Ox 98 06/19/22 15:45 O2 Del Method Room Air 06/20/22 04:00 Pain Score (VAS): 2/10 I/O: Intake & Output 06/19/22 06/20/22 06/20/22 23:59 07:59 15:59 Intake Total 300 4000 Output Total 200 2500 Balance 100 1500 Laboratory Tests 06/20/22 04:29 06/19/22 06/20/22 11:53 04:29 WBC 8.9 RBC 2.90 L Hgb 8.7 L Hct 25.6 L MCV 88.3 MCH 30.0 MCHC 34.0 RDW 14.6 H Plt Count 166 MPV 12.5 H Immature Gran % (Auto) 1.6 H Neut % (Auto) 79.7 H Lymph % (Auto) 11.7 L [place] % (Auto) 6.5 Eos % (Auto) 0.3 Baso % (Auto) 0.2 Lymph # (Auto) 1.04 [place] # (Auto) 0.6 Eos # (Auto) 0.0 Baso # (Auto) 0.0 Abs Immat Gran (auto) 0.14 H Absolute Neuts (auto) 7.1 H Absolute Nucleated RBC 0.0 Nucleated RBC % 0.0 POC Capillary Glucose 70 Post-procedural complaints: none Patient Feedback: Patient satisfied with anesthetic care.
[2022-06-20 12:13] VITALS: BP 115/56; PULSE 88; RESP 18; TEMP 36.2; O2SAT 98
--- NOTE | 2022-06-20 13:01 | PM.OBPNVD ---
OB - PN: Subj Subjective Date/time seen: 06/20/22 13:02 Narrative: Pain OK. Tolerating diet. OB - PN: Obj Data Labs CBC & Chem 7: 06/20/22 04:29 Labs: Laboratory Results - last 24 hr 06/20/22 04:29 WBC 8.9 RBC 2.90 L Hgb 8.7 L Hct 25.6 L MCV 88.3 MCH 30.0 MCHC 34.0 RDW 14.6 H Plt Count 166 MPV 12.5 H Immature Gran % (Auto) 1.6 H Neut % (Auto) 79.7 H Lymph % (Auto) 11.7 L [place] % (Auto) 6.5 Eos % (Auto) 0.3 Baso % (Auto) 0.2 Lymph # (Auto) 1.04 [place] # (Auto) 0.6 Eos # (Auto) 0.0 Baso # (Auto) 0.0 Abs Immat Gran (auto) 0.14 H Absolute Neuts (auto) 7.1 H Absolute Nucleated RBC 0.0 Nucleated RBC % 0.0 OB - PN A/P Plan Comments: A: POD#1, doing well. P: Routine care. Time Spent With Patient Time with patient: less than 15 minutes Exam Narrative: AVSS I/O OK ABD soft, nontender, fundus firm. Incision c/d/i. EXT nontender
[2022-06-20] MEDS: FLUTICASONE PROPIONATE 0.05% NA SPR 16 GM BTL (*BKC) 1 SPRAY NASAL ×2 (15:40→20:27)
[2022-06-20 20:00] VITALS: BP 103/56; PULSE 93; RESP 18; TEMP 36.6
[2022-06-20] MEDS: SERTRALINE HCL 50 MG TABLET 100 MG PO (20:27)
[2022-06-20] MEDS: risperiDONE 0.5 MG TABLET PO (20:28)
[2022-06-21] MEDS: HYDROcodone/acetaminophen (*CRX) 10-325 MG TABLET 1 TAB PO ×2 (05:25→10:23)
[2022-06-21] MEDS: SIMETHICONE 80 MG TAB.CHEW PO ×2 (05:26→10:23)
[2022-06-21] MEDS: IBUPROFEN 600 MG TABLET PO ×2 (05:26→12:45)
[2022-06-21 08:10] VITALS: BP 122/79; PULSE 98; RESP 16; TEMP 36.2; O2SAT 99
--- NOTE | 2022-06-21 08:59 | PM.OBPNVD ---
OB - PN: Subj Subjective Date/time seen: 06/21/22 08:59 Narrative: Pain OK. Tolerating diet. Would like to go home. OB - PN: Obj Data Labs CBC & Chem 7: 06/20/22 04:29 OB - PN A/P Plan Comments: A: POD#2, doing well. Wants to go home. P: Home to f/u 4 weeks. Exam Narrative: AVSS ABD soft, nontender, fundus firm. Incision c/d/i. EXT nontender
--- NOTE | 2022-06-21 10:00 | PC.NURSE ---
PT introductions made and plan of care discussed per post , post op c section, pain management, bottle feeding, daily care activities and pending discharge to home. PT and spouse both recipients of such instructions and no barriers to learning noted at this time . PT received such instructions per one to one discussion, mom baby care guide and demonstrations this shift. PT verbalized understanding of such care.
[2022-06-21] MEDS: FLUTICASONE PROPIONATE 0.05% NA SPR 16 GM BTL (*BKC) 1 SPRAY NASAL (10:22)
[2022-06-21] MEDS: DOCUSATE SODIUM 100 MG CAPSULE PO (10:23)
[2022-06-21] MEDS: risperiDONE 0.5 MG TABLET PO (10:23)
[2022-06-21] MEDS: POLYSACCHARIDE IRON COMPLEX 150 MG CAPSULE PO (10:24)
--- NOTE | 2022-06-21 12:30 | PC.NURSE ---
PT received discharge instructions per protocol and verbalized understanding of such care.
--- NOTE | 2022-06-21 13:00 | PC.NURSE ---
PT discharged to home ambulatory to waiting car accompanied by significant other and infant. follow up appts confirmed
[2022-06-22 09:43] VITALS: BP 132/67; PULSE 86; RESP 20; TEMP 36.9; O2SAT 100
== END 2022-06-21 13:00 | disposition home or self-care (01) | DRG 785 ==
LOC: ANHLDR 10:13 → ANHOB2 15:36
PROVIDERS: Admitting Provider Obstetrics & Gynecology; PCP Family Medicine Sports Medicine; Visit Provider Obstetrics & Gynecology
PROC: 10D00Z1 Extraction of Products of Conception, Low, Open Approach (ICD-10-PCS; CPT 59514; principal; 2022-06-19 12:00)
DX: O34.211 Maternal care for low transverse scar from previous cesarean delivery (principal); Z37.0 Single live birth; Z3A.39 39 weeks gestation of pregnancy; O24.429 Gestational diabetes mellitus in childbirth, unspecified control; O99.824 Streptococcus B carrier state complicating childbirth; Z30.2 Encounter for sterilization; O99.344 Other mental disorders complicating childbirth; F41.9 Anxiety disorder, unspecified; F32.A Depression, unspecified
CPT/HCPCS: 36415; 82948; 85025; 88302; 88307; A9270; J0131; J1200; J1885; J2274; J2405; J2590; J7120

== ENCOUNTER 2023-08-19 13:38 | Emergency (ER) | payer BC, SELFPAY ==
[2023-08-19] VITALS (17 sets, daily range): BP systolic 96–134; BP diastolic 58–82; PULSE 87–122; RESP 13–23; TEMP 36.4; O2SAT 95–100
[2023-08-19 14:04] LABS: Basophils Percent Auto 0.3 % (0.2-1.2); Eosinophils Absolute Auto 0.1 K/mm3 (0-0.3); Eosinophils Percent Auto 0.4 % (0-4.4); Hemoglobin 15.2 g/dL (12.0-15.0); Immature Granulocyte Absolute 0.07 K/mm3 (0.00-0.031); Immature Granulocyte Percent A 0.5 % (0-0.5); Lymphocytes Absolute Auto 1.07 K/mm3 (0.9-3.2); Lymphocytes Percent Auto 7.3 % (18.3-44.2); Mean Corpuscular HGB Conc 32.3 g/dl (32-36); Mean Corpuscular Hemoglobin 29.8 pg (26-34); Mean Corpuscular Volume 92.2 fl (80-100); Mean Platelet Volume 12.2 fl (7.4-10.4); Monocytes Absolute Auto 0.5 K/mm3 (0.1-0.6); Monocytes Percent Auto 3.2 % (2.6-8.5); Neutrophils Percent Auto 88.3 % (45.5-73.1); Platelet Count Result 212 k/mm3 (150-375); White Blood Count 14.7 K/mm3 (4.5-10.0)
[2023-08-19 14:14] LABS: Alanine Aminotransferase 24 U/L (6-35); Albumin Level 5.1 g/dL (3.5-5.1); Alkaline Phosphatase 99 U/L (38-126); Anion Gap 14 mmol/L (8-16); Aspartate Amino Transferase 25 U/L (14-36); Bilirubin,Total 0.6 mg/dL (0.2-1.3); Blood Urea Nitrogen 14 mg/dL (7-17); Carbon Dioxide 19 mmol/L (22-30); Chloride 107 mmol/L (98-107); Estimated Glomerular Filt Rate > 60; Glucose 136 mg/dL (65-110); Lipase 68 U/L (23-300); Potassium 4.4 mmol/L (3.4-5.0); Sodium 140 mmol/L (137-145)
--- NOTE | 2023-08-19 14:57 | ED.NAVMDI ---
HPI - Nausea/Vomiting/Diarrhea General Chief complaint: Nausea/Vomiting/Diarrhea Stated complaint: N/V/D SINCE SUNDAY AM Time Seen by Provider: 08/19/23 14:35 Source: patient Mode of arrival: ambulatory Limitations: no limitations History of Present Illness HPI Narrative: 32 years old white female came to the ED by private car complaining of severe vomiting and diarrhea started this morning after waking up associated with chills and abdominal cramps. She denies sick contact. Does not work, have 2 children who are doing okay .patient started her menstrual cycle yesterday she denies smoking, drinking or using drugs. Patient reports itching rash on the back of the neck started 2 days ago. MD elicited complaint: nausea, vomiting and diarrhea Related Data Home Medications Medication Instructions Recorded Confirmed ferrous sulfate 325 mg (65 mg 325 mg PO DAILY 05/12/22 06/19/22 iron) tablet vit no.95-ferrous 1 tablet PO DAILY 05/12/22 06/19/22 fumarate 28 mg-folic acid 800 mcg tablet () risperidone 0.5 mg tablet 0.5 mg PO BID 05/12/22 06/19/22 sertraline 100 mg tablet 100 mg PO HS 05/12/22 06/19/22 Allergies Allergy/AdvReac Type Severity Reaction Status Date / Time No Known Allergies Allergy Verified 08/19/23 14:59 Review of Systems Review of Systems: All systems reviewed & are unremarkable except as noted in HPI and below PMFSH Past Medical History Medical History Anxiety Depression Diabetes Hyperlipidemia Morbidly obese Nausea Surgical History Surgical History History of delivery Family History Family History Grandparent Coronary stent patent Heart attack Diabetes mellitus Grandparent Lung cancer Other Patient's mother is Social History Social History Smoking status: Never smoker Alcohol intake: never Substance use: never Substance use type: does not use Living arrangements: with family Occupation/Education: occupation Gender identity (if verbalized by the patient): Female Spiritual care concerns: No Exam Narrative: General appearance: Well-developed, well-nourished Skin: Normal color, itching rash/maculopapular at the back of the neck Head: Normocephalic, nontraumatic Eyes: Clear conjunctiva ENT: Oropharynx normal, ears normal, nose normal Neck: Supple, nontender Chest and respiratory: Airway patent, no respiratory distress, no accessory muscle use Heart: Regular rate/rhythm Abdomen: Soft, nontender, no organomegaly, quiet bowel sounds Vascular: Normal peripheral pulses, normal capillary refill. Musculoskeletal: Normal range of motion, nontender back Neurologic: Alert and oriented ?3, BUYER GRAIN is normal as tested, no gross motor deficit Course Vital Signs Vital signs: Vital Signs Temperature 36.4 C 08/19/23 13:38 Pulse Rate 114 H 08/19/23 13:38 Respiratory Rate 16 08/19/23 13:38 Blood Pressure 96/69 L 08/19/23 13:38 Pulse Oximetry 99 08/19/23 13:38 Oxygen Delivery Room Air 08/19/23 13:38 Temperature 36.4 C 08/19/23 13:38 Pulse Rate 114 H 08/19/23 18:40 Respiratory Rate 19 08/19/23 18:40 Blood Pressure 120/68 08/19/23 18:40 Pulse Oximetry 100 08/19/23 18:40 Oxygen Delivery Room Air 08/19/23 13:38 MDM - Nausea/Vomiting/Diarrhea MDM Narrative Medical decision making narrative: Patient presents with vomiting and diarrhea a lot started this morning. She denied respiratory symptoms. Also c
[2023-08-19] MEDS: SODIUM CHLORIDE 0.9% IV 2,000 ML 999 ML IV CONT (15:23)
[2023-08-19] MEDS: ONDANSETRON INJ 4 MG/2 ML VIAL 8 MG IV PUSH (15:24)
[2023-08-19 19:09] LABS: Appearance Urine Cloudy (Clear); Bacteria Urine Rare /hpf; Bilirubin Urine Negative (Negative); Blood Urine 3+ (Negative); Color Urine Yellow (Yellow); Glucose Urine UA Negative (Negative); Ketones Urine Negative (Negative); Leukocyte Esterase Ur 2+ LEU/UL (Negative); Nitrate Urine Negative (Negative); Protein Urine 1+ mg/dL (Negative); RBC Urine >100 /hpf (0-2); Specific Grav Ur 1.019 (1.001-1.035); Squamous Epithelial Cell Urine Few /hpf (Few); Urobilinogen Urine 0.2 mg/dL (<2.0); WBC Urine 51-100 /hpf
[2023-08-19 19:15] LABS: Add Urine Microscopic? YES
[2023-08-19 19:36] LABS: SARS-CoV-2 RNA PCR Negative (Negative)
== END 2023-08-19 20:23 | disposition home or self-care (01) ==
PROVIDERS: Preventive Medicine Aerospace Medicine; Emergency Provider Emergency Medicine; PCP Family Medicine Sports Medicine
DX: K52.9 Noninfective gastroenteritis and colitis, unspecified (principal); L30.9 Dermatitis, unspecified; N39.0 Urinary tract infection, site not specified; E11.9 Type 2 diabetes mellitus without complications; E78.5 Hyperlipidemia, unspecified; F41.9 Anxiety disorder, unspecified; F32.A Depression, unspecified; Z20.822 Contact with and (suspected) exposure to COVID-19
CPT/HCPCS: 36415; 80053; 81001; 81025; 83690; 85025; 87077; 87086; 87088; 87635; 96374; 99284; J2405; J7030

== ENCOUNTER 2023-09-19 16:22 | Emergency (ER) | payer BC, SELFPAY ==
--- NOTE | ~2023-09-19 | XR_ITS ---
EXAMINATION: XR chest 2V Exam Date/Time: 09/19/2023 16:50 COMPRESSION MOLDING MACHINE OPERATOR HISTORY: TIGHTNESS,DRY COUGH,POST COVID Comparison: 03/14/2021. RESULT: Lines, tubes, and devices: None. Lungs and pleura: Ill-defined patchy opacities in the right lower lung. Cardiomediastinal silhouette: Stable. Other: No acute osseous or upper abdominal finding. IMPRESSION: Subsegmental right lower lung opacities may represent atelectasis or pneumonia. Reviewed, dictated and finalized at location K. RESSION MOLDING MACHINE OPERATOR
[2023-09-19 16:35] VITALS: BP 100/70; PULSE 86; RESP 20; TEMP 37.1; O2SAT 95
--- NOTE | 2023-09-19 16:44 | ED.URI ---
HPI - URI/Sore Throat General Chief Complaint: Upper Respiratory Infection Stated Complaint: Tightness to Chest Time Seen by Provider: 09/19/23 16:35 Source: patient Mode of arrival: ambulatory Limitations: no limitations History of Present Illness HPI Narrative: Viry is a 32-year-old female patient presenting to the clinic today with complaints of chest tightness, nonproductive cough, and sore throat. She reports that she recently had COVID and had influenza prior to having COVID. Tested positive for COVID 2 weeks ago. Denies any fever or chills. States she does have some shortness of breath. MD elicited complaint: sore throat and nasal congestion Related Data Home Medications Medication Instructions Recorded Confirmed glutathione 500 mg capsule 500 mg PO DAILY 09/19/23 09/19/23 paroxetine HCl 25 mg 25 mg PO DAILY 09/19/23 09/19/23 tablet,extended release 24 hr topiramate 25 mg tablet 25 mg PO BID 09/19/23 09/19/23 Allergies Allergy/AdvReac Type Severity Reaction Status Date / Time iohexol Allergy Hives Verified 09/19/23 16:44 [From contrast - CT, X-RAY] Review of Systems Review of Systems: Pertinent positives per HPI. Patient denies any fever, chills, rash, headache, visual changes, dizziness, chest pain, palpitations, nausea, vomiting, diarrhea, constipation, abdominal pain, or any urinary issues. [facility] Past Medical History Medical History Anxiety Depression Diabetes Hyperlipidemia Morbidly obese Nausea Surgical History Surgical History History of delivery Family History Family History Grandparent Coronary stent patent Heart attack Diabetes mellitus Grandparent Lung cancer Other Patient's mother is Social History Social History Smoking status: Never smoker Alcohol intake: never Substance use: never Substance use type: does not use Living arrangements: with family Occupation/Education: occupation Gender identity (if verbalized by the patient): Female Spiritual care concerns: No Comments At the time of my signature, I reviewed and agree with the nursing past medical, surgical, social, and family history. There is no relevant family history pertinent to the patient complaint. Exam Narrative: General: Well-developed, obese, in no apparent distress Head: Normocephalic, atraumatic Eyes: Pupils equally round and reactive to light bilaterally, EOM intact, sclera and conjunctive clear, no discharge, lids normal Ears: TMs intact and congested, ear canals clear, no drainage, grossly hearing normal. Nose: Nares patent, clear nasal discharge, no inflammation, no sinus tenderness. Mouth: Oral pharynx without lesions or masses, good dentition, MMM. Neck: Supple, trachea midline, no enlargement of anterior or posterior cervical nodes, no thyroid masses or goiter palpable. Cardio: Regular rate and rhythm, s1 and s2 normal, no murmur appreciated. Resp: Faint crackles in the lower bases, no rhonchi, wheezing or rubs Course Course Emergency Course: Portions of this record may have been created with voice recognition software. Level of Care: Express Care Visit Vital Signs Vital signs: Vital signs reviewed MDM - URI/Sore Throat MDM Narrative Medical decision making narrative: At the time of visit patient is resting comfortably on the exam table. Patient is nontoxic appearing. SpO2 is 95% on room air. Strep test and chest x-ray was performed. Strep test was negative in the clinic today. Chest x-ray shows possible right lower lobe pneumonia. Will send in prescription for albuterol inhaler, Augmentin, and azithromycin. Supportive measures were discussed with the patient she voiced understanding discharge in
[2023-09-19 16:48] VITALS: BP 100/70; PULSE 86; RESP 20; TEMP 37.1; O2SAT 95
== END 2023-09-19 17:15 | disposition home or self-care (01) ==
PROVIDERS: Emergency Provider Nurse Practitioner Family; PCP Family Medicine Sports Medicine
DX: J18.9 Pneumonia, unspecified organism (principal); E11.9 Type 2 diabetes mellitus without complications; E78.5 Hyperlipidemia, unspecified; E66.01 Morbid (severe) obesity due to excess calories; Z68.41 Body mass index [BMI] 40.0-44.9, adult; F41.9 Anxiety disorder, unspecified; F32.A Depression, unspecified; Z86.16 Personal history of COVID-19
CPT/HCPCS: 71046; 87081; 87880; 99213; G0463

== ENCOUNTER 2023-09-21 20:32 | Emergency (ER) | payer BC, SELFPAY ==
[2023-09-21 20:35] VITALS: BP 133/82; PULSE 91; RESP 20; TEMP 35.7; O2SAT 99
[2023-09-21 21:01] VITALS: O2SAT 100; O2SAT 99
--- NOTE | 2023-09-21 21:04 | PC.NURSE ---
Patient states that she was dx with pneumonia three days ago and given azithromycin, Augmentin, and an inhaler.
--- NOTE | 2023-09-21 21:33 | ED.GENADULT ---
HPI - General Adult General Chief complaint: Shortness of Breath/Dyspnea Stated complaint: SOB-pneumonia Time Seen by Provider: 09/21/23 20:55 Source: patient Mode of arrival: ambulatory Limitations: no limitations History of Present Illness HPI narrative: This is a 32 year old female with PMH of HLD, anxiety, depression who presents with chief complaint of pleuritic chest pain ongoing for the past several days. Reports that she has been dealing with a lingering cough for the last several weeks. She reports she was diagnosed with pneumonia based on chest x-ray from urgent care 2 days ago. She was given Augmentin and azithromycin has been taking these. Reports that she is here today because of the increasing pleuritic pain. She does note that pain is better when sitting up. She states that the fevers been resolved for the past week and a half. Denies headache, neck pain, nausea, vomiting, diarrhea, abdominal pain, urinary problems. Related Data Home Medications Medication Instructions Recorded Confirmed glutathione 500 mg capsule 500 mg PO DAILY 09/19/23 09/19/23 paroxetine HCl 25 mg 25 mg PO DAILY 09/19/23 09/19/23 tablet,extended release 24 hr topiramate 25 mg tablet 25 mg PO BID 09/19/23 09/19/23 Allergies Allergy/AdvReac Type Severity Reaction Status Date / Time iohexol Allergy Hives Verified 09/21/23 20:32 [From contrast - CT, X-RAY] Review of Systems Review of Systems: All systems as dictated in [facility] Past Medical History Medical History Anxiety Depression Diabetes Hyperlipidemia Morbidly obese Nausea Surgical History Surgical History History of delivery Family History Family History Grandparent Coronary stent patent Heart attack Diabetes mellitus Grandparent Lung cancer Other Patient's mother is Social History Social History Smoking status: Never smoker Alcohol intake: never Substance use: never Substance use type: does not use Living arrangements: with family Occupation/Education: occupation Gender identity (if verbalized by the patient): Female Spiritual care concerns: No Exam Narrative: GENERAL: Well-appearing, well-nourished, and in no acute distress. HEAD: Normocephalic, atraumatic. EYES: PERRLA and EOMI. ENT: Nares clear, no rhinorrhea or epistaxis. Mucous membranes moist. Oropharynx without tonsillar hypertrophy exudate or other lesions. NECK: Supple. No adenopathy or masses. CHEST: No respiratory distress. Clear to auscultation. No wheezes rales or rhonchi HEART: Regular rate and rhythm. No murmur heard. Normal peripheral pulses. ABDOMEN: Soft, nontender, nondistended, normal active bowel sounds. MSK: Normal range of motion. No edema. SKIN: Warm, dry, no rash. NEURO: Alert and oriented x3. No focal deficits. PSYCH: Normal mood and affect. Course Vital Signs Vital signs: Vital Signs Temperature 96.2 F L 09/21/23 20:35 Pulse Rate 91 09/21/23 20:35 Respiratory Rate 20 09/21/23 20:35 Blood Pressure 133/82 09/21/23 20:35 Pulse Oximetry 99 09/21/23 20:35 Oxygen Delivery Room Air 09/21/23 20:35 Temperature 96.2 F L 09/21/23 20:35 Pulse Rate 80 09/21/23 22:45 Respiratory Rate 19 09/21/23 22:45 Blood Pressure 130/80 09/21/23 22:45 Pulse Oximetry 97 09/21/23 22:45 Oxygen Delivery Room Air 09/21/23 21:01 Medical Decision Making MDM Narrative Medical decision making narrative: This is a 32-year-old female who presents to the ED with chief complaint of cough and pleuritic chest pain. Vitals are normal. Exam is benign. White count slightly elevated 12.2. D-dimer also elevated to 0.63. She has no risk factors for VTE, feel she is likely
--- NOTE | 2023-09-21 21:34 | ECG_ITS ---
Measurements Intervals [place] Rate: 79 P: 31 CO: 131 QRS: 24 QRSD: 97 T: 18 QT: 372 QTc: 426 Interpretive Statements SINUS RHYTHM LOW-VOLTAGE QRS IN PRECORDIAL LEADS BORDERLINE ECG COMPARED TO ECG 03/14/2021 20:43:20 NO SIGNIFICANT CHANGES Electronically Signed On 09-22-2023 14:01:26 INNERSOLE MAKER by Aquilino Bone M.D.
[2023-09-21] MEDS: KETOROLAC 15 MG/ML VIAL (*BKC) IV PUSH (21:57)
[2023-09-21 22:05] LABS: Basophils Percent Auto 0.3 % (0.2-1.2); Eosinophils Absolute Auto 0.2 K/mm3 (0-0.3); Eosinophils Percent Auto 1.6 % (0-4.4); Immature Granulocyte Absolute 0.05 K/mm3 (0.00-0.031); Immature Granulocyte Percent A 0.4 % (0-0.5); Lymphocytes Absolute Auto 3.61 K/mm3 (0.9-3.2); Lymphocytes Percent Auto 29.6 % (18.3-44.2); Mean Corpuscular HGB Conc 33.3 g/dl (32-36); Mean Corpuscular Hemoglobin 29.6 pg (26-34); Mean Corpuscular Volume 88.8 fl (80-100); Mean Platelet Volume 11.8 fl (7.4-10.4); Monocytes Absolute Auto 0.6 K/mm3 (0.1-0.6); Monocytes Percent Auto 4.8 % (2.6-8.5); Neutrophils Absolute Auto 7.7 K/mm3 (1.3-6.7); Neutrophils Percent Auto 63.3 % (45.5-73.1); Platelet Count Result 200 k/mm3 (150-375); Red Blood Count 4.39 M/mm3 (4.2-5.4); Red Cell Distribution Width 12.6 % (11.5-14.5); White Blood Count 12.2 K/mm3 (4.5-10.0)
[2023-09-21 22:19] LABS: D Dimer 0.63 ug/mL (<0.48)
[2023-09-21 22:20] LABS: Alanine Aminotransferase 19 U/L (6-35); Albumin Level 4.4 g/dL (3.5-5.1); Alkaline Phosphatase 95 U/L (38-126); Anion Gap 13 mmol/L (8-16); Aspartate Amino Transferase 20 U/L (14-36); Bilirubin,Total 0.3 mg/dL (0.2-1.3); Blood Urea Nitrogen 12 mg/dL (7-17); Calcium 9.6 mg/dL (8.4-10.2); Carbon Dioxide 20 mmol/L (22-30); Chloride 107 mmol/L (98-107); Estimated CRCL calculation 105 ml/min; Estimated Glomerular Filt Rate > 60; Glucose 98 mg/dL (65-110); Potassium 3.6 mmol/L (3.4-5.0); Sodium 140 mmol/L (137-145)
[2023-09-21 22:32] LABS: Troponin I < 0.012 ng/mL (0.000-0.034)
[2023-09-21 22:45] VITALS: BP 130/80; PULSE 80; RESP 19; O2SAT 97
== END 2023-09-21 22:45 | disposition home or self-care (01) ==
PROVIDERS: Emergency Provider Physician Assistant; PCP Family Medicine Sports Medicine
DX: J18.9 Pneumonia, unspecified organism (principal); R07.81 Pleurodynia; E11.9 Type 2 diabetes mellitus without complications; E78.5 Hyperlipidemia, unspecified; F41.9 Anxiety disorder, unspecified; F32.A Depression, unspecified; E66.01 Morbid (severe) obesity due to excess calories; Z68.42 Body mass index [BMI] 45.0-49.9, adult; R94.31 Abnormal electrocardiogram [ECG] [EKG]
CPT/HCPCS: 36415; 80053; 84484; 85025; 85380; 93005; 96374; 99284; J1885

== ENCOUNTER 2023-11-22 19:36 | Emergency (ER) | payer BC, SELFPAY ==
--- NOTE | ~2023-11-22 | XR_ITS ---
EXAMINATION: XR chest 2V DATE: 11/22/2023 19:57 INDICATION: One day of chest heaviness and cough TECHNIQUE: PA and lateral views of the chest were obtained. COMPARISON: Chest radiograph dated 09/19/2023 FINDINGS: The lungs remain clear with no focal airspace opacities, pulmonary edema, pleural effusion or pneumot horax. The cardiomediastinal silhouette is normal. Old fracture deformity at the medial right clavicl e. IMPRESSION: 1. No acute cardiopulmonary disease. Reviewed, dictated and finalized at location A. MACHINE RUNNER
[2023-11-22 19:42] VITALS: BP 118/93; PULSE 134; RESP 20; TEMP 36.6; O2SAT 100
[2023-11-22 19:49] VITALS: BP 118/93; PULSE 134; RESP 20; TEMP 36.6; O2SAT 100
--- NOTE | 2023-11-22 20:06 | ED.URI ---
HPI - URI/Sore Throat General Chief Complaint: Upper Respiratory Infection Stated Complaint: Shortness of Breath/Body Aches/Cough Source: patient and RN notes reviewed Mode of arrival: ambulatory Limitations: no limitations History of Present Illness HPI Narrative: 33-year-old female presented for complaint of cough, subjective fever, and chest heaviness. Endorses her family has influenza. She states she has concern for pneumonia. Denies shortness of breath, fatigue, nausea, vomiting, diarrhea or lethargy. She has not taken anything for symptoms. MD elicited complaint: cough Related Data Home Medications Medication Instructions Recorded Confirmed paroxetine HCl 25 mg 25 mg PO DAILY 09/19/23 11/22/23 tablet,extended release 24 hr topiramate 25 mg tablet 25 mg PO BID 09/19/23 11/22/23 clonazepam 0.5 mg tablet 0.5 mg PO PRN PRN Anxiety 11/22/23 11/22/23 Allergies Allergy/AdvReac Type Severity Reaction Status Date / Time iohexol Allergy Hives Verified 09/21/23 20:32 [From contrast - CT, X-RAY] Review of Systems Review of Systems: CONSTITUTIONAL: Endorses malaise, chills, sweats, fever EYES: Denies visual changes, redness, or discharge ENT: Reports rhinorrhea, congestion, Deniessinus pain, otalgia, sore throat CARDIOVASCULAR: Denies chest pain, palpitations, edema RESPIRATORY: Reports cough, Denies dyspnea GASTROINTESTINAL: Denies abdominal pain, nausea, vomiting, diarrhea SKIN: Denies rash or itching MUSCULOSKELETAL: Endorses myalgia PMFSH Past Medical History Medical History Anxiety Depression Diabetes Hyperlipidemia Morbidly obese Nausea Surgical History Surgical History History of delivery Family History Family History Grandparent Coronary stent patent Heart attack Diabetes mellitus Grandparent Lung cancer Other Patient's mother is Social History Social History Smoking status: Never smoker Alcohol intake: never Substance use: never Substance use type: does not use Living arrangements: with family Occupation/Education: occupation Gender identity (if verbalized by the patient): Female Spiritual care concerns: No Exam Narrative: GENERAL: Mildly Ill-appearing, nontoxic no acute distress. EYES: PERRLA, conjunctivae clear ENT: Mucous membranes moist. TM pearly enriquez with dull light reflex bilaterally; no tragal tenderness. CHEST: Clear to auscultation, breath sounds equal. No wheezing, rhonchi, rales, or stridor. No respiratory distress, speaks in full sentences. HEART: Regular rate and rhythm. No murmur heard. SKIN: Warm, dry, no rash. NEURO: Alert and oriented x3. PSYCH: Normal mood and affect Course Course Emergency Course: Patient is aware of diagnosis, understands and agrees to treatment plan. Anticipatory guidance given. Patient agrees to follow-up as directed and is aware of reasons to seek care at the emergency department. Portions of this record may have been created with voice recognition software Level of Care: Express Care Visit Vital Signs Vital signs: Vital Signs Temperature 97.8 F 11/22/23 19:42 Pulse Rate 134 H 11/22/23 19:42 Respiratory Rate 20 11/22/23 19:42 Blood Pressure 118/93 H 11/22/23 19:42 Pulse Oximetry 100 11/22/23 19:42 Oxygen Delivery Room Air 11/22/23 19:42 Temperature 97.8 F 11/22/23 19:49 Pulse Rate 134 H 11/22/23 19:49 Respiratory Rate 20 11/22/23 19:49 Blood Pressure 118/93 H 11/22/23 19:49 Pulse Oximetry 100 11/22/23 19:49 Oxygen Delivery Room Air 11/22/23 19:49 reviewed MDM - URI/Sore Throat MDM Narrative Medical decision making narrative: results of chest x-ray reviewed with patient. Declined influenza testing.
== END 2023-11-22 20:15 | disposition home or self-care (01) ==
PROVIDERS: Emergency Provider Nurse Practitioner Family; PCP Family Medicine Sports Medicine
DX: B34.9 Viral infection, unspecified (principal); E11.9 Type 2 diabetes mellitus without complications; E78.5 Hyperlipidemia, unspecified; E66.01 Morbid (severe) obesity due to excess calories; Z68.42 Body mass index [BMI] 45.0-49.9, adult; F41.9 Anxiety disorder, unspecified; F32.A Depression, unspecified
CPT/HCPCS: 71046; 99213; G0463

== ENCOUNTER 2023-12-13 13:21 | Emergency (ER) | payer BC, SELFPAY ==
[2023-12-13 13:33] VITALS: BP 109/67; PULSE 98; RESP 16; TEMP 37.1; O2SAT 99
--- NOTE | 2023-12-13 14:28 | ED.URI ---
HPI - URI/Sore Throat General Chief Complaint: Upper Respiratory Infection Stated Complaint: Cough/Chills/Vomiting Time Seen by Provider: 12/13/23 13:25 Source: patient Mode of arrival: ambulatory Limitations: no limitations History of Present Illness HPI Narrative: 33-year-old female to [facility] with complaint postnasal drainage for 2 weeks, chills and vomiting that started today. patient endorses that she has vomited 3 times since 11:00 a.m. today. Patient denies abdominal pain, diarrhea fever. Patient does endorse dysuria x2 days. Denies frequency or urgency. Patient able to tolerate fluids by mouth. Patient reports her family tested positive for influenza a 2 weeks ago and that she was seen here in clinic at time and diagnosed with influenza a without a positive swab due to exposure and symptoms. Related Data Home Medications Medication Instructions Recorded Confirmed paroxetine HCl 25 mg 25 mg PO DAILY 09/19/23 12/13/23 tablet,extended release 24 hr topiramate 25 mg tablet 25 mg PO BID 09/19/23 12/13/23 clonazepam 0.5 mg tablet 0.5 mg PO PRN PRN Anxiety 11/22/23 12/13/23 Allergies Allergy/AdvReac Type Severity Reaction Status Date / Time iohexol Allergy Hives Verified 09/21/23 20:32 [From contrast - CT, X-RAY] Review of Systems Review of Systems: All systems reviewed & are unremarkable except as noted in HPI and below Constitutional: Constitutional: Reports no additional constitutional complaints, Reports chills, Denies fever(s) and Denies headache(s) Eyes: Eyes: Reports no additional eye complaints ENT: Reports system reviewed and no additional complaints, except as documented Cardiovascular: Cardiovascular: Reports no additional cardiovascular complaints, Denies chest pain and Denies dyspnea Respiratory: Respiratory: Reports no additional respiratory complaints, Denies cough and Denies dyspnea Gastrointestinal: Gastrointestinal: Reports as per HPI, Reports no additional gastrointestinal complaints, Denies abdominal pain, Denies change in stool character, Reports nausea and Reports vomiting Genitourinary: Genitourinary: Reports dysuria Musculoskeletal: Musculoskeletal: Reports no additional musculoskeletal complaints Neurologic: Reports system reviewed and no additional complaints, except as documented Psychiatric: Psychiatric: Reports no additional psychiatric complaints PMFSH Past Medical History Medical History Anxiety Depression Diabetes Hyperlipidemia Morbidly obese Nausea Surgical History Surgical History History of delivery Family History Family History Grandparent Coronary stent patent Heart attack Diabetes mellitus Grandparent Lung cancer Other Patient's mother is Social History Social History Smoking status: Never smoker Alcohol intake: never Substance use: never Substance use type: does not use Living arrangements: with family Occupation/Education: occupation Gender identity (if verbalized by the patient): Female Spiritual care concerns: No Comments At the time of my signature, I reviewed and agree with the nursing past medical, surgical, social, and family history. There is no relevant family history pertinent to the patient complaint. Exam Const: General: cooperative, healthy appearing, comfortable, no acute distress, alert and well nourished Nutritional Appearance: well nourished Orientation/consciousness: patient oriented x3 Limitations: no limitations HENMT: Head: normal to inspection Ears: external ears normal Face/Nose/Sinus: Normal external nose present, Normal nares present, normal facial exam, No erythema and No edema Face and sinus: normal facial exam, no erythema and no edema Mouth:
[2023-12-13 14:29] VITALS: BP 137/60; PULSE 116; RESP 18; TEMP 37.1; O2SAT 98
== END 2023-12-13 14:57 | disposition home or self-care (01) ==
PROVIDERS: Emergency Provider Nurse Practitioner Family; PCP Family Medicine Sports Medicine
DX: J06.9 Acute upper respiratory infection, unspecified (principal); F41.9 Anxiety disorder, unspecified; F32.A Depression, unspecified; E78.5 Hyperlipidemia, unspecified; Z79.899 Other long term (current) drug therapy; Z20.822 Contact with and (suspected) exposure to COVID-19
CPT/HCPCS: 81003; 87081; 87426; 87804; 87880; 99213; G0463

== ENCOUNTER 2024-03-23 22:16 | Emergency (ER) | payer BC, SELFPAY ==
[2024-03-23] VITALS (7 sets, daily range): BP systolic 103–136; BP diastolic 67–89; PULSE 81–87; RESP 15–20; TEMP 36.6; O2SAT 98–100
--- NOTE | ~2024-03-23 | XR_ITS ---
Clinical Indication: Dyspnea PA and lateral views of the chest: Comparison: 11/22/2023 Findings: The lungs are clear, without evidence of focal consolidation or pleural effusion. Cardiome diastinal silhouette is within normal limits. Bones and soft tissues are unremarkable. Impression: Normal chest. Reviewed, dictated and finalized at location . Impression: Normal chest.
--- NOTE | 2024-03-23 22:27 | PC.NURSE ---
This RN discussed pt sx w ER provider Dr. Siegel. No further orders at this time.
--- NOTE | 2024-03-23 23:47 | PC.NURSE ---
Report received from YA Murcia. Assumed care of patient at this time.
[2024-03-24] VITALS (14 sets, daily range): BP systolic 101–125; BP diastolic 69–87; PULSE 83–95; RESP 15–28; O2SAT 98–100
[2024-03-24 00:26] LABS: Basophils Absolute Auto 0.1 K/mm3 (0.0-0.1); Basophils Percent Auto 0.5 % (0.2-1.2); Eosinophils Absolute Auto 0.2 K/mm3 (0-0.3); Eosinophils Percent Auto 1.5 % (0-4.4); Hematocrit 37.2 % (37.0-47.0); Hemoglobin 12.9 g/dL (12.0-15.0); Immature Granulocyte Absolute 0.08 K/mm3 (0.00-0.031); Immature Granulocyte Percent A 0.7 % (0-0.5); Lymphocytes Absolute Auto 3.83 K/mm3 (0.9-3.2); Lymphocytes Percent Auto 33.1 % (18.3-44.2); Mean Corpuscular HGB Conc 34.7 g/dl (32-36); Mean Corpuscular Hemoglobin 30.4 pg (26-34); Mean Corpuscular Volume 87.5 fl (80-100); Mean Platelet Volume 12.1 fl (7.4-10.4); Monocytes Absolute Auto 0.5 K/mm3 (0.1-0.6); Monocytes Percent Auto 4.6 % (2.6-8.5); Neutrophils Absolute Auto 6.9 K/mm3 (1.3-6.7); Neutrophils Percent Auto 59.6 % (45.5-73.1); Platelet Count Result 188 k/mm3 (150-375); Red Blood Count 4.25 M/mm3 (4.2-5.4); Red Cell Distribution Width 12.9 % (11.5-14.5); White Blood Count 11.6 K/mm3 (4.5-10.0)
--- NOTE | 2024-03-24 00:29 | ECG_ITS ---
[facility] [address] Test Date: 2024-03-24 Pat Name: Viry Hi Department: Room: Gender: F Pediatric Medical Assistant: : 1990 Requested By: Farzana Lewis Order Number: [id number] Tiffany MD: Leo Hatfield M.D. Measurements Intervals Jackson Rate: 86 P: 18 WY: 125 QRS: 39 QRSD: 91 T: 13 QT: 373 QTc: 449 Interpretive Statements SINUS RHYTHM LOW QRS VOLTAGE IN PRECORDIAL LEADS [QRS DEFLECTION < 1.0 mV IN CHEST LEADS] OTHERWISE WITHIN NORMAL LIMITS No previous ECG available for comparison Electronically Signed On 03-24-2024 07:34:41 CDT by Leo Hatfield M.D.
--- NOTE | 2024-03-24 00:30 | ED.NEUROSD ---
HPI - Neuro Symptoms/Deficit General Chief Complaint: Neuro Symptoms/Deficit <Farzana Aguilera PA-C - Last Filed: 03/24/24 01:54> Stated Complaint: tingling in side of head and sweet tast in mouth <Farzana Aguilera PA-C - Last Filed: 03/24/24 01:54> Time Seen by Provider: 03/24/24 00:10 <ESPINOZA Armenta Last Filed: 03/24/24 01:54> History of Present Illness HPI Narrative: 33-year-old female with history of hyperlipidemia, depression anxiety, morbid obesity presents emergency department for paresthesias for 3 days. Patient is reporting a tingling sensation she describes as leg swelling on her skin to be left side of her scalp and bilateral hands. She states the symptoms are intermittent she cannot identify any aggravating or alleviating factors. She is also reporting a sweet taste in her mouth for 3 days. States she feels her symptoms and came to the ED because she is concerned she is having a stroke. She is reporting some intermittent blurred vision in her left eye which he states has been going on for 1 year. She denies head injury or trauma, focal numbness or weakness, chest pain or abdominal pain, nausea, vomiting or diarrhea. Patient does have a known pituitary adenoma that is being watched by her neurosurgeon, Dr. Erwin. She was evaluated by her neurosurgeon 1 month ago and had an MRI at that time which showed a stable pituitary adenoma. She does state that she has been under lot of stress recently but denies current feelings of anxiety <Farzana Aguilera PA-C - Last Filed: 03/24/24 01:54> Related Data Home Medications: Home Medications Medication Instructions Recorded Confirmed paroxetine HCl 25 mg 25 mg PO DAILY 09/19/23 12/13/23 tablet,extended release 24 hr topiramate 25 mg tablet 25 mg PO BID 09/19/23 12/13/23 clonazepam 0.5 mg tablet 0.5 mg PO PRN PRN Anxiety 11/22/23 12/13/23 <ESPINOZA Armenta Last Filed: 03/24/24 01:54> Allergies/Adverse Reactions: Allergies Allergy/AdvReac Type Severity Reaction Status Date / Time iohexol Allergy Hives Verified 03/23/24 22:24 [From contrast - CT, X-RAY] <Farzana Aguilera PA-C - Last Filed: 03/24/24 01:54> Review of Systems Review of Systems: CONSTITUTIONAL: Denies fever, chills, or sweats. EYES: Denies visual changes, redness, or discharge. ENT: Denies rhinorrhea, congestion, sore throat, or otalgia. CARDIOVASCULAR: Denies chest pain, palpitations, or edema. RESPIRATORY: Denies cough or dyspnea. GASTROINTESTINAL: Denies abdominal pain, nausea, vomiting, or diarrhea. GENITOURINARY: Denies dysuria or hematuria. SKIN: Denies rash or itching. MUSCULOSKELETAL: Denies back pain, joint pain, or myalgia. NEUROLOGIC: See HPI PSYCHIATRIC: Denies anxiety or depression. <Farzana Aguilera PA-C - Last Filed: 03/24/24 01:54> [facility] Past Medical History Medical History: Medical History Anxiety Depression Diabetes Hyperlipidemia Morbidly obese Nausea <Farzana Aguilera PA-C - Last Filed: 03/24/24 01:54> Surgical History Surgical History: Surgical History History of delivery <Farzana Aguilera PA-C - Last Filed: 03/24/24 01:54> Family History Family History: Family History Grandparent Coronary stent patent Heart attack Diabetes mellitus Grandparent Lung cancer Other Patient's mother is <Farzana Aguilera PA-C - Last Filed: 03/24/24 01:54> Social History Social History: Social History Smoking status: Never smoker Alcohol intake: never Substance use: never Substance use type: does not use Living arrangements: with family Occupation/Education: occupation Gender identity (if verbalized by the patient): Femal
[2024-03-24] MEDS: LORazepam (*CRX) 0.5 MG TABLET PO (00:44)
[2024-03-24 00:48] LABS: SPREG INTERNAL CONTROL Positive; Serum Qual hCG Negative
[2024-03-24 02:53] LABS: Alanine Aminotransferase 17 U/L (6-35); Alkaline Phosphatase 90 U/L (38-126); Anion Gap 5 mmol/L (4-12); Aspartate Amino Transferase 20 U/L (14-36); Bilirubin,Total 0.5 mg/dL (0.2-1.3); Blood Urea Nitrogen 13 mg/dL (7-17); Calcium 9.2 mg/dL (8.4-10.2); Carbon Dioxide 24 mmol/L (22-30); Chloride 107 mmol/L (98-107); Estimated CRCL calculation 104 ml/min; Estimated Glomerular Filt Rate > 60; Folic Acid 6.7 ng/mL (2.76->20); Glucose 89 mg/dL (65-110); Magnesium 1.7 mg/dL (1.6-2.3); Potassium 3.7 mmol/L (3.4-5.0); Sodium 136 mmol/L (137-145)
== END 2024-03-24 03:07 | disposition home or self-care (01) ==
PROVIDERS: Physician Assistant; Emergency Provider Emergency Medicine; PCP Family Medicine Sports Medicine
DX: R20.2 Paresthesia of skin (principal); F41.9 Anxiety disorder, unspecified; F32.A Depression, unspecified; E11.9 Type 2 diabetes mellitus without complications; E78.5 Hyperlipidemia, unspecified; E66.09 Other obesity due to excess calories; Z68.42 Body mass index [BMI] 45.0-49.9, adult
CPT/HCPCS: 36415; 71046; 80053; 81025; 82607; 82746; 83735; 84703; 85025; 93005; 99283; A9270

== ENCOUNTER 2024-08-31 18:34 | Emergency (ER) | payer BC, SELFPAY ==
[2024-08-31] VITALS (26 sets, daily range): BP systolic 116–142; BP diastolic 68–97; PULSE 86–112; RESP 12–20; TEMP 36.5; O2SAT 96–100
--- NOTE | ~2024-08-31 | CT_ITS ---
EXAMINATION: CT brain wo con DATE: 08/31/2024 19:22 INDICATION: headache, dizziness, Hx of pituitary adenoma . TECHNIQUE: Computed tomography (CT) of the head was performed without intravenous contrast. The mA wa s adjusted according to patient size. Iterative reconstruction technique was employed. The dose-lengt h product was 605.33 mGy-cm. COMPARISON: None. FINDINGS: No acute intracranial hemorrhage or extra-axial fluid collection. No hydrocephalus, mass, or herniation. No acute ischemic infarct. Unremarkable dural venous sinus attenuation. No acute osseous abnormality. The aerated spaces are clear. Enlarged pituitary gland. IMPRESSION: No acute intracranial process. Enlarged pituitary, consistent with the given history of pituitary adenoma. Reviewed, dictated and finalized at location K. A OPERATOR
--- NOTE | 2024-08-31 18:50 | ED.GENADULT ---
HPI - General Adult General Chief complaint: Dizziness Stated complaint: head pain Time Seen by Provider: 08/31/24 18:37 History of Present Illness HPI narrative: Viry is a 33F with a PMH of HLD, DMII, contrast dye allergy, anxiety/depression/ obesity and a pituitary adenoma that presented to the ER with a headache and dizziness. It started 3 days ago with a frontal headache. Pain has now moved to the top of her head and she has vertigo and nausea. She vomited once yesterday. Related Data Home Medications Medication Instructions Recorded Confirmed paroxetine HCl 25 mg 25 mg PO DAILY 09/19/23 08/31/24 tablet,extended release 24 hr topiramate 25 mg tablet 25 mg PO BID 09/19/23 08/31/24 clonazepam 0.5 mg tablet 0.5 mg PO PRN PRN Anxiety 11/22/23 08/31/24 Allergies Allergy/AdvReac Type Severity Reaction Status Date / Time iohexol Allergy Hives Verified 08/31/24 18:39 [From contrast - CT, X-RAY] Review of Systems Review of Systems: All systems reviewed & are unremarkable except as noted in HPI and below PMFSH Past Medical History Medical History Anxiety Depression Diabetes Hyperlipidemia Morbidly obese Nausea Surgical History Surgical History History of delivery Family History Family History Grandparent Coronary stent patent Heart attack Diabetes mellitus Grandparent Lung cancer Other Patient's mother is Social History Social History Smoking status: Never smoker Alcohol intake: never Substance use: never Substance use type: does not use Living arrangements: with family Occupation/Education: occupation Gender identity (if verbalized by the patient): Female Spiritual care concerns: No Exam Const: General: cooperative, healthy appearing, comfortable, no acute distress, well developed, alert, awake and Physically active Orientation/consciousness: oriented to person, oriented to place and oriented to time HENMT: Head: normal to inspection, normocephalic and atraumatic Ears: hearing grossly normal bilaterally and external ears normal Face/Nose/Sinus: Normal external nose present Eyes: General: appearance normal, both eyes and all related structures Periorbital: periorbital findings normal Sclera: sclerae normal Pupils: Equal, round and reactive pupils present Neck: Neck: normal visual inspection Chest: Chest palpation & inspection: normal inspection of the chest Resp: Effort & Inspection: normal respiratory effort, able to speak in complete sentences and no respiratory distress Auscultation: clear to auscultation bilaterally Cardio: Jugular venous distension: no JVD Rate: regular rate Rhythm: regular rhythm GI: Inspection: normal to inspection GI Palp: Yes Soft to palpation Auscultation: normal bowel sounds Skin: General skin exam: normal color and no rashes or lesions noted Neuro: General: oriented to person, oriented to place and oriented to time Cranial nerves: Yes Equal, round and reactive pupils present Other: multiple beats of left sided nystagmus. Remainder of HINTS exam was unremarkable. Extrem: General: normal to inspection Course Course Emergency Course: Ordered CT brain and labs EXAMINATION: CT brain wo con DATE: 08/31/2024 19:22 INDICATION: headache, dizziness, Hx of pituitary adenoma . TECHNIQUE: Computed tomography (CT) of the head was performed without intravenous contrast. The mA was adjusted according to patient size. Iterative reconstruction technique was employed. The dose-length product was 605.33 mGy-cm. COMPARISON: None. FINDINGS: No acute intracranial hemorrhage or extra-axial fluid collection. No hydrocephalus, mass, or herniation. No acute ischemic infarct. Unremarkable dural venous sinus attenuation. No acute osseous abnormality. The aerated spaces are clear. Enlarged pituitary gland. IMPRESSION: No acute intracranial process. Enlarged pituitary, consistent with the given history of pituitary adenoma. Given Toradol and Meclizine. Moderate improvement in pain and dizziness. Given normal CT and nystagmus ddx includes atypical migraine, TTHA, BPPV vs a bleed or mass being less likely Vital Signs Vital signs: Vital Signs Temperature 97.7 F 08/31/24 18:35 Pulse Rate 94 08/31/24 18:35 Respiratory Rate 20 08/31/24 18:35 Blood Pressure 137/89 08/31/24 18:35 Pulse Oximetry 100 08/31/24 18:35 Oxygen Delivery Room Air 08/31/24 18:35 Temperature 97.7 F 08/31/24 18:35 Pulse Rate 94 08/31/24 18:35 Respiratory Rate 20 08/31/24 18:35 Blood Pressure 137/89 08/31/24 18:35 Pulse Oximetry 100 08/31/24 18:35 Oxygen Delivery Room Air 08/31/24 18:35 Medical Decision Making Vital Signs Vital Signs: Vital Signs Temperature 97.7 F 08/31/24 18:35 Pulse Rate 94 08/31/24 18:35 Respiratory Rate 20 08/31/24 18:35 Blood Pressure 137/89 08/31/24 18:35 Pulse Oximetry 100 08/31/24 18:35 Oxygen Delivery Room Air 08/31/24 18:35 Temperature 97.7 F 08/31/24 18:35 Pulse Rate 94 08/31/24 18:35 Respiratory Rate 20 08/31/24 18:35 Blood Pressure 137/89 08/31/24 18:35 Pulse Oximetry 100 08/31/24 18:35 Oxygen Delivery Room Air 08/31/24 18:35 Lab Data 08/31/24 19:45 08/31/24 19:45 Labs: Lab Results 08/31/24 Range/Units 19:45 WBC 10.8 (4.8-10.8) K/mm3 RBC 4.58 (4.20-5.40) M/mm3 Hgb 13.5 (12.0-15.0) g/dL Hct 39.4 (35.0-49.0) % MCV 86.0 (78.0-102.0) fL MCH 29.5 (27.0-31.0) pg MCHC 34.3 (32-36) g/dL RDW 12.7 (11.6-14.4) % Plt Count 192 (150-420) K/mm3 MPV 11.8 (9.2-11.8) fl Immature Gran % (Auto) 0.6 H (0.0-0.0) % Neut % (Auto) 58.2 (50.0-70.0) % Lymph % (Auto) 33.4 (18.0-42.0) % Taylor % (Auto) 5.5 (2.0-11.0) % Eos % (Auto) 1.9 (1.0-6.0) % Baso % (Auto) 0.4 (0.0-1.0) % Lymph # (Auto) 3.61 (1.10-4.50) K/mm3 Taylor # (Auto) 0.60 (0.10-0.90) K/mm3 Eos # (Auto) 0.21 (0.02-0.50) K/mm3 Baso # (Auto) 0.04 (0.00-0.10) K/mm3 Abs Immat Gran (auto) 0.06 H (0.00-0.00) K/mm3 Absolute Neuts (auto) 6.30 (1.70-7.20) K/mm3 Absolute Nucleated RBC 0.00 (0.00-0.00) K/mm3 Nucleated RBC % 0.0 (0-0.0) % PT 10.8 (9.50-12.1) Seconds INR 1.0 Sodium 141 (136-145) mmol/L Potassium 3.7 (3.5-5.1) mmol/L Chloride 104 (98-108) mmol/L Carbon Dioxide 28 (21-32) mmol/L Anion Gap 9 (4-12) mmol/L BUN 12 (7-18) mg/dL Creatinine 0.90 (0.55-1.02) mg/dL Estim Creat Clear Calc 95 ml/min Estimated GFR > 60 (59 - ) Glucose 118 H (70-99) mg/dL Calculated Osmolality 292 (285-295) mOsm/kg Calcium 9.2 (8.5-10.1) mg/dL Total Bilirubin 0.2 (0.00-1.00) mg/dL AST 10 L (15-37) U/L ALT 21 (14-59) U/L Alkaline Phosphatase 107 (46-116) U/L Total Protein 7.4 (6.4-8.2) g/dL Albumin 3.4 (3.4-5.0) g/dL Discharge Plan Discharge Clinical Impression: Headache, Dizziness Patient Disposition: Home, Self-Care Condition: Stable Instructions: Dizziness (ED) Prescriptions: New meclizine 25 mg tablet 25 mg PO BID PRN (Reason: dizziness) Qty: 20 0RF No Action topiramate 25 mg tablet 25 mg PO BID paroxetine HCl 25 mg tablet extended release 24 hr 25 mg PO DAILY clonazepam 0.5 mg tablet 0.5 mg PO PRN PRN (Reason: Anxiety) Follow-up/Referrals: Demetrio Luna M.D. [Physician] -
[2024-08-31 19:49] LABS: Basophils Absolute Auto 0.04 K/mm3 (0.00-0.10); Basophils Percent Auto 0.4 % (0.0-1.0); Eosinophils Absolute Auto 0.21 K/mm3 (0.02-0.50); Eosinophils Percent Auto 1.9 % (1.0-6.0); Hematocrit 39.4 % (35.0-49.0); Hemoglobin 13.5 g/dL (12.0-15.0); Immature Granulocyte Absolute 0.06 K/mm3 (0.00-0.00); Immature Granulocyte Percent A 0.6 % (0.0-0.0); Lymphocytes Absolute Auto 3.61 K/mm3 (1.10-4.50); Lymphocytes Percent Auto 33.4 % (18.0-42.0); Mean Corpuscular HGB Conc 34.3 g/dL (32-36); Mean Corpuscular Hemoglobin 29.5 pg (27.0-31.0); Mean Platelet Volume 11.8 fl (9.2-11.8); Monocytes Percent Auto 5.5 % (2.0-11.0); Neutrophils Percent Auto 58.2 % (50.0-70.0); Platelet Count Result 192 K/mm3 (150-420); Red Blood Count 4.58 M/mm3 (4.20-5.40); Red Cell Distribution Width 12.7 % (11.6-14.4); White Blood Count 10.8 K/mm3 (4.8-10.8)
[2024-08-31 20:04] LABS: Prothrombin Time 10.8 Seconds (9.50-12.1)
[2024-08-31 20:07] LABS: Alanine Aminotransferase 21 U/L (14-59); Albumin Level 3.4 g/dL (3.4-5.0); Alkaline Phosphatase 107 U/L (46-116); Anion Gap 9 mmol/L (4-12); Aspartate Amino Transferase 10 U/L (15-37); Bilirubin,Total 0.2 mg/dL (0.00-1.00); Blood Urea Nitrogen 12 mg/dL (7-18); Calcium 9.2 mg/dL (8.5-10.1); Carbon Dioxide 28 mmol/L (21-32); Chloride 104 mmol/L (98-108); Estimated CRCL calculation 95 ml/min; Estimated Glomerular Filt Rate > 60; Glucose 118 mg/dL (70-99); Osmolality Calculated 292 mOsm/kg (285-295); Potassium 3.7 mmol/L (3.5-5.1); Sodium 141 mmol/L (136-145); Total Protein 7.4 g/dL (6.4-8.2)
[2024-08-31] MEDS: KETOROLAC 30 MG/ML VIAL (*BKC) IM (21:43)
[2024-08-31] MEDS: MECLIZINE HCL 25 MG TABLET PO (21:43)
== END 2024-08-31 22:40 | disposition home or self-care (01) ==
PROVIDERS: Emergency Provider Family Medicine; PCP Family Medicine
DX: R51.9 Headache, unspecified (principal); R42 Dizziness and giddiness; E11.9 Type 2 diabetes mellitus without complications; E78.5 Hyperlipidemia, unspecified; Z79.899 Other long term (current) drug therapy
CPT/HCPCS: 36415; 70450; 80053; 85025; 85610; 96372; 99284; A9270; J1885

== ENCOUNTER 2025-01-02 05:05 | Emergency (ER) | payer BC, SELFPAY ==
--- NOTE | ~2025-01-02 | CT_ITS ---
Non-contrast CT scan of the Abdomen and Pelvis Clinical indication: Abdominal pain Technique: 2.5 mm axial scans were obtained through the abdomen and pelvis without intravenous or or al contrast. Dose reduction technique was used on this scan by utilizing automated exposure control a nd iterative reconstruction technique. The dose-length product (DLP) was 1493.50 mGy-cm. Findings: Images through the lung bases reveal no abnormalities. There is no evidence of renal or ureteral calculi. The kidneys and the ureters are nondilated. The liver, spleen, pancreas, gallbladder, and adrenals appear normal. There is no aortic aneurysm. There is no evidence of bowel obstruction. Small fat-containing umbilical hernia present. Images through the pelvis were performed. There is no evidence of ascites or lymphadenopathy. Urinary bladder unremarkable. No pelvic mass seen. No ascites. Impression: No acute abnormality. Small fat-containing umbilical hernia. Reviewed, dictated and finalized at [facility]. Impression: No acute abnormality. Small fat-containing umbilical hernia.
[2025-01-02 05:05] VITALS: BP 111/63; PULSE 84; RESP 18; TEMP 36.4; O2SAT 99
--- OUTSIDE RECORDS SUMMARY | 2025-01-02 05:07 | XMS_ITS | Clinical Summary ---
Author Organization [facility] Address [address] [place] [address] Care Team Providers Care Block Sealer Name Role Phone Leo Ramos MD Unavailable [phone] Chuck Pryor MD Primary Care Provider [phone] Source Comments [facility],non-owned Affiliates and Associated Physician Practices is amultiple site organization consisting of ambulatory clinics and hospital sitesin [place], [place], [place] and [place]. This disclosure is being madepursuant to the Care Everywhere program and may not contain all information available regarding this patient. Last updated 18.[facility] [employer] Allergies No known active allergies Medications Be aware that medications may not be up to date on this document. Always verify current medications with the patient. No known medications Active Problems No known active problems Immunizations Name Administration Dates Next Due INFLUENZA VACCINE, QUADR. (F LUZONE; FLULAVAL; FLUARIX; AFLURIA QUADRIVALENT; 6MO+), 0.5 ML (IIV4) 07/20/2017 TDAP (7yrs+) 12/12/2017 Social History Tobacco Use Types Packs/Day Years Used Date Smoking Tobacco: Never Smokeless Tobacco: Never Sex and Gender Information Value Date Recorded Sex Assigned at Not on file Gender Identity Not on file Sexual Orientation Not on file Last Filed Vital Signs Vital Sign Reading Time Taken Comments Blood Pressure 124/82 11/03/2019 3:12 PM DIESEL ROLLER OPERATOR Pulse 99 11/03/2019 3:12 PM DIESEL ROLLER OPERATOR Temperature 36.9 C (98.5 F) 11/03/2019 3:12 PM DIESEL ROLLER OPERATOR Respiratory Rate 16 11/03/2019 3:12 PM DIESEL ROLLER OPERATOR Oxygen Saturation 100% 11/03/2019 3:12 PM DIESEL ROLLER OPERATOR Inhaled Oxygen Concentration - - Weight 103.4 kg (228 lb) 11/03/2019 3:12 PM DIESEL ROLLER OPERATOR Height 154.9 cm (5' 1 ) 11/03/2019 3:12 PM DIESEL ROLLER OPERATOR Body Mass Index 43.08 11/03/2019 3:12 PM DIESEL ROLLER OPERATOR Plan of Treatment Health Maintenance Due Date Last Done Comments PAP SMEAR 1990 HIV SCREENING 2007 HEPATITIS C SCREENING 10/08/2010 HEPATITIS B VACCINE (1 of 3 - 19+ 3-dose series) 2011 COVID-19 VACCINE (2023-2 5 season) 2024 INFLUENZA VACCINE (#1) 2024 07/20/2017 DEPRESSION SCREENING 10/22/2024 DTAP/TDAP/TD VACCINES (2 - T d or Tdap) 12/12/2027 12/12/2017 ZOSTER VACCINE (1 of 2) 2042 HIB VACCINE Aged Out No longer eligi ble based on patient's age to complete this topic HPV VACCINE Aged Out No longer eligi ble based on patient's age to complete this topic MENINGOCOCCAL (Group B) VACC INE SHARED DECISION-MAKING Aged Out No longer eligibl e based on patient's age to complete this topic MENINGOCOCCAL GROUPS A/C/Y/W VACCINE Aged Out No longer eligible b ased on patient's age to complete this topic PNEUMOCOCCAL VACCINE Aged Out No long er eligible based on patient's age to complete this topic Care Teams Block Sealer Relationship Specialty Start Date End Date Chuck Pryor MD [address] [place] [address] PCP - General 06/22/22 Leo Ramos MD [address] [facility] [address] [place] [address] Internal Medicine 07/20/17
--- OUTSIDE RECORDS SUMMARY | 2025-01-02 05:07 | XMS_ITS | Clinical Summary ---
Author Organization [facility] [address] Address [address] [place] [id number] Care Team Providers Care Commuter Train Operator Name Role Phone Braeden Luna MD Primary Care Provider [phone] Allergies Active Allergy Reactions Criticality Noted Date Comments Iodinated Contrast Media Blisters,Edema High 023 Medications clonazePAM (KlonoPIN) 0.5 mg tablet Take 1 tablet (0.5 mg total) by mouth 2 (two) times a day 04/27/2023 Active PARoxetine CR (PAXIL-CR) 25 mg 24 hr tablet 04/27/2023 Active topiramate (TOPAMAX) 25 mg tablet 04/27/2023 Active tirzepatide, weight loss, (Zepbound) 2.5 mg/0.5 mL pen injector Inject 0.5 mL (2.5 mg total) under the skin every 7 days 2 mL 6 08/12/2024 Active Active Problems Problem Noted Date Diagnosed Date Acne 08/12/2024 Class 3 severe obesity witho ut serious comorbidity with body mass index (BMI) of 45.0 to 49.9 in adult 08/12/2024 Elevated TSH 03/19/2024 Pituitary adenoma 06/26/2023 Obstructive sleep apnea 06/26/2023 Other hyperlipidemia 06/26/2023 OCD (obsessive compulsive disorder) 06/26/2023 PTSD (post-traumatic stress disorder) 06/26/2023 Other headache syndrome 06/26/2023 Other fatigue 06/26/2023 Encounters Date Type Department Care Team Description 11/11/2024 Telephone [facility] [address] [place] [address] Berenice Mims NP from Last 3 Months Immunizations Immunization Administration Dates Next Due Influenza, Quadrivalent, Spl it, Preservative Free, Intramuscular 07/20/2017 Tdap 12/12/2017 Surgical History Surgery Date Site/Laterality Comments SECTION TUBAL LIGATION Medical History Medical History Date Comments Depression Family History Medical History Relation Name Comments Hypertension Father Cancer Paternal Grandfather Alzheimer's disease Paternal Grandmother Diabetes Paternal Grandmother Heart attack Paternal Grandmother Heart disease Paternal Grandmother Depression Sister 1 Erika Obesity Sister 1 Erika Obesity Sister 2 Megan Relation Name Status Comments Father Paternal Grandfather Paternal Grandmother Sister 1 Erika Sister 2 Megan Social History Tobacco Use Types Packs/Day Years Used Date Smoking Tobacco: Never Tobacco Cessation:Counseling Given: Not Answered AUDIT-C Answer Date Recorded Q1: How often do you have a drink containing alcohol? Never 01/23/2024 Q2: How many drinks containi ng alcohol do you have on a typical day when you are drinking? Patient does not drink Q3: How often do you have si x or more drinks on one occasion? Never 01/23/2024 Comments Unknown Sex and Gender Information Value Date Recorded Sex Assigned at Not on file Legal Sex Female 3:51 AM CDT Gender Identity Not on file Sexual Orientation Not on file Obstetrics History Last Filed Vital Signs Vital Sign Reading Time Taken Comments Blood Pressure 112/72 06/26/2023 2:19 PM CDT Pulse 93 06/26/2023 2:19 PM CDT Temperature 36.9 C (98.5 F) 08/21/2022 9:20 AM CDT Respiratory Rate 18 08/21/2022 9:20 AM CDT Oxygen Saturation 97% 08/21/2022 9:20 AM CDT Inhaled Oxygen Concentration - - Weight 113.4 kg (250 lb) 01/23/2024 10:53 AM CDT Height 154.9 cm (5' 1 ) 06/26/2023 2:19 PM CDT Body Mass Index 47.24 06/26/2023 2:19 PM CDT Plan of Treatment Health Maintenance Due Date Last Done Comments Cervical Cancer Screening 1992 Depression Screening 1992 Hepatitis C Screening 1992 Varicella Vaccines (1 of 2 - 13+ 2-dose series) 2005 Hepatitis B Screening 2010 Regular Well Visit/Exam 18-64 2010 Influenza Vaccine (#1) 2024 07/20/2017 DTaP/Tdap/Td Vaccine (2 - Td or Tdap) 12/12/2027 12/12/2017 HPV Vaccines Aged Out No longer eligi ble based on patient's age to complete this topic Pneumococcal vaccine <65 Aged Out No longer eligible based on patient's age to complete this topic Insurance [employer] OOS [employer] CHOICE OOS BLUE ACC CHOICE OOS Care Teams Commuter Train Operator Relationship Specialty Start Date End Date Braeden Luna MD [address] [place] [address] PCP - General Family Medicine 03/25/24
--- OUTSIDE RECORDS SUMMARY | 2025-01-02 05:07 | XMS_ITS | Referral Summary ---
Author Organization [facility] Address [address] [facility] [place] [address] Care Team Providers Care Performance Improvement Specialist Name Role Phone Leo Ramos MD Unavailable [phone] Chuck Pryor MD Primary Care Provider [phone] Source Comments [facility],non-owned Affiliates and Associated Physician Practices is amultiple site organization consisting of ambulatory clinics and hospital sitesin [place], [place], [place] and [place]. This disclosure is being madepursuant to the Care Everywhere program and may not contain all information available regarding this patient. Last updated 18.[facility] [employer] Allergies No known active allergies Medications Be [...] Comments Blood Pressure 124/82 11/03/2019 3:12 PM FRONT DESK ADMINISTRATOR Pulse 99 11/03/2019 3:12 PM FRONT DESK ADMINISTRATOR Temperature 36.9 C (98.5 F) 11/03/2019 3:12 PM FRONT DESK ADMINISTRATOR Respiratory Rate 16 11/03/2019 3:12 PM FRONT DESK ADMINISTRATOR Oxygen Saturation 100% 11/03/2019 3:12 PM FRONT DESK ADMINISTRATOR Inhaled Oxygen Concentration - - Weight 103.4 kg (228 lb) 11/03/2019 3:12 PM FRONT DESK ADMINISTRATOR Height 154.9 cm (5' 1 ) 11/03/2019 3:12 PM FRONT DESK ADMINISTRATOR Body Mass Index 43.08 11/03/2019 3:12 PM FRONT DESK ADMINISTRATOR Plan of Treatment Not on file Care Teams Performance Improvement Specialist Relationship Specialty Start Date End Date Chuck Pryor MD [facility] [place] [address] PCP - General 06/22/22 Leo Ramos MD [address] [facility] [address] [place] [address] Internal Medicine 07/20/17
--- OUTSIDE RECORDS SUMMARY | 2025-01-02 05:07 | XMS_ITS | Clinical Summary ---
Author Organization [facility] Address [address] [place] [address] Phone Care Team Providers Care Coil Former Name Role Phone Unavailable Primary Care Provider Unavailabl e Medications PAROXETINE HCL ORAL Take by mouth. Active topiramate (TOPAMAX) 50 mg tablet Take 50 mg by mouth 2 times daily. Active Active Problems No known active problems Encounters Date Type Department Care Team Description 12/27/2024 External Device Data STL ABSTRACTION Provider, Abstract 12/26/2024 External Device Data STL ABSTRACTION Provider, Abstract 12/24/2024 External Device Data STL ABSTRACTION Provider, Abstract 12/22/2024 Orders Only [facility] Neurosurgery [facility] [address] [facility] [address] [place] [phone] Ramses Turner MD Rathke's cleft cyst (Primary Dx); Pituitary mass 12/09/2024 External Device Data STL ABSTRACTION Provider, Abstract 12/08/2024 Telephone [facility] Endocrinology [address] [facility] [address] [place] [address] Rashid Denney MD FIELD TECH appt 11/21/2024 Telephone [facility] Neurosurgery [facility] [address] [facility] [address] [place] [phone] Ramses Turner MD pituitary follow up questions 11/18/2024 External Device Data STL ABSTRACTION Provider, Abstract 11/12/2024 External Device Data STL ABSTRACTION Provider, Abstract 11/12/2024 External Device Data STL ABSTRACTION Provider, Abstract 10/10/2024 Orders Only [facility] Neurosurgery - [facility] [address] [facility] [address] [place] [address] Ramses Turner MD Pituitary mass (Primary Dx) from Last 3 Months Family History Medical History Relation Name Comments High Cholesterol Father Brain Aneurysm Maternal Aunt Cancer Maternal Aunt Other Maternal Grandfather tobacco use Other Maternal Grandmother tobacco use Other Paternal Grandfather tobacco use Brain Aneurysm Paternal Grandmother Diabetes Paternal Grandmother Heart Disease Paternal Grandmother Other Paternal Grandmother tobacco use Relation Name Status Comments Father Maternal Aunt Alive Maternal Grandfather Maternal Grandmother Paternal Grandfather Paternal Grandmother Social History Tobacco Use Types Packs/Day Years Used Date Smoking Tobacco: Never Smokeless Tobacco: Never Alcohol Use Standard Drinks/Week Comments Never 0 (1 standard drink = 0.6 oz pur e alcohol) Comments Unknown Sex and Gender Information Value Date Recorded Sex Assigned at Female 09/25/2024 9:34 PM [employer]CIAL INTER[employer] Legal Sex Female 4:09 PM CDT Gender Identity Female 09/25/2024 9:34 PM [employer] INTERNS[employer] Sexual Orientation Straight 09/25/2024 9: 34 PM [employer]CIAL INTERNS[employer]IP Last Filed Vital Signs Vital Sign Reading Time Taken Comments Blood Pressure 97/64 09/15/2024 10:40 AM COMMERCIAL INTERNSHIP Pulse 86 09/15/2024 10:40 AM COMMERCIAL INTERNSHIP Temperature 36.6 C (97.9 F) 09/15/2024 10:40 AM COMMERCIAL INTERNSHIP Respiratory Rate - - Oxygen Saturation 97% 09/15/2024 10:40 AM COMMERCIAL INTERNSHIP Inhaled Oxygen Concentration - - Weight 117.5 kg (259 lb) 09/15/2024 10:40 AM COMMERCIAL INTERNSHIP Height - - Body Mass Index - - Plan of Treatment Upcoming Encounters Date Type Department Care Team (Late st Contact Info) Description 01/26/2025 11:45 AM CDT Appointment [address] [phone] Ramses Turner MD [address] [facility] [address] [address] -x0 (Work) 03/11/2025 1:00 PM CDT Office Visit [facility] Endocrinology [address] [facility] [address] [place] [phone] Rashid Denney MD [address] [place] [address] Health Maintenance Due Date Last Done Comments HEPATITIS B VACCINES (1 of 3 - 19+ 3-dose series) 2011 CERVICAL CANCER SCREENING 2022 INFLUENZA VACCINE (#1) 2024 07/20/2017 DTAP/TDAP/TD VACCINES (2 - T d or Tdap) 12/12/2027 12/12/2017 HPV VACCINES Aged Out No longer eligi ble based on patient's age to complete this topic Insurance [facility] BLUE ACCESS/TRUE BLUE PPO
--- OUTSIDE RECORDS SUMMARY | 2025-01-02 05:07 | XMS_ITS | Referral Summary ---
Author Organization [facility] [address] [place] Address [address] [place] [address] Care Team Providers Care Elevator Mechanic Name Role Phone Braeden Luna MD Primary Care Provider [phone] Encounters Date Type Department Care Team Description 11/11/2024 Telephone [facility] Scheduling [address] [place] [address] Berenice Mims NP from Last 3 Months Allergies Active Allergy Reactions Criticality Noted Date [...] Other headache syndrome 06/26/2023 Other fatigue 06/26/2023 Immunizations Immunization Administration Dates Next Due Influenza, Quadrivalent, Spl it, Preservative Free, Intramuscular 07/20/2017 Tdap 12/12/2017 Social History Tobacco Use Types Packs/Day [...] 06/26/2023 2:19 PM CDT Plan of Treatment Not on file Insurance [facility] [facility] OOS [employer] CHOICE OOS [employer] Wait[employer] CHOICE OOS Care Teams Elevator Mechanic Relationship Specialty Start Date End Date Braeden Luna MD [address] [place] [address] PCP - General Family Medicine 03/25/24
--- OUTSIDE RECORDS SUMMARY | 2025-01-02 05:07 | XMS_ITS | Patient Health Summary ---
Author Organization [facility] Address [address] [facility] [place] [address] Care Team Providers Care Tire Spotter Name Role Phone Leo Ramos MD Unavailable [phone] Chuck Pryor MD Primary Care Provider [phone] Note from Formerly named [facility],non-owned Affiliates and Associated Physician Practices is amultiple site organization consisting of ambulatory clinics and hospital sitesin [place], [place], [place] and [place]. This disclosure is being madepursuant to the Care Everywhere program and may not contain all information available regarding this patient. Last updated 18.[facility] Allergies No known active allergies Medications Be aware that medications may not be up to date on this document. Always verify current medications with the patient. No known medications Active Problems No known active problems Immunizations * INFLUENZA VACCINE, QUADR. (FLUZONE; FLULAVAL; FLUARIX; AFLURIA QUADRIVALENT; 6MO+), 0.5 ML (IIV4)(Given 07/20/2017) * TDAP (7yrs+)(Given 12/12/2017) Social History Tobacco Use Types Packs/Day Years Used Date Smoking Tobacco: Never Smokeless Tobacco: Never Sex and Gender Information Value Date Recorded Sex Assigned at Not on file Gender Identity Not on file Sexual Orientation Not on file Last Filed Vital Signs Vital Sign Reading Time Taken Comments Blood Pressure 124/82 11/03/2019 3:12 PM ARC WELDING MACHINE OPERATOR Pulse 99 11/03/2019 3:12 PM ARC WELDING MACHINE OPERATOR Temperature 36.9 C (98.5 F) 11/03/2019 3:12 PM ARC WELDING MACHINE OPERATOR Respiratory Rate 16 11/03/2019 3:12 PM ARC WELDING MACHINE OPERATOR Oxygen Saturation 100% 11/03/2019 3:12 PM ARC WELDING MACHINE OPERATOR Inhaled Oxygen Concentration - - Weight 103.4 kg (228 lb) 11/03/2019 3:12 PM ARC WELDING MACHINE OPERATOR Height 154.9 cm (5' 1 ) 11/03/2019 3:12 PM ARC WELDING MACHINE OPERATOR Body Mass Index 43.08 11/03/2019 3:12 PM ARC WELDING MACHINE OPERATOR Procedures * INFLUENZA A+B - POINT OF CARE (AMB)(Performed 10/19/2019) Performed for Acute URI * STREP A SCREEN - POINT OF CARE (AMB) STL(Performed 10/19/2019) Performed for Acute URI * CULTURE THROAT(Performed 10/08/2018) Performed for Acute viral pharyngitis * STREP A SCREEN - POINT OF CARE (AMB) STL(Performed 10/06/2018) Performed for Acute viral pharyngitis * STREP A SCREEN - POINT OF CARE (AMB) STL(Performed 02/28/2018) Performed for Acute pharyngitis, unspecified etiology * STREP A SCREEN - POINT OF CARE (AMB) STL(Performed 12/12/2017) Performed for Acute streptococcal pharyngitis * STREP A SCREEN - POINT OF CARE (AMB) STL(Performed 01/08/2017) Performed for Strep throat Results * STREP A SCREEN - POINT OF CARE (AMB) STL (10/19/2019 2:50 PM ARC WELDING MACHINE OPERATOR) Only the most recent of5 resultswithin the time period is included. Strep A Rapid POCT Negative Negative Strep A Internal Control Present Lot # [id number] Expiration Date 01/19/21 Throat ENTIRE THROAT (SURFACE REGION OF NECK) / Unknown 10/19/2019 2:50 PM ARC WELDING MACHINE OPERATOR Lakesha Gerard APRN-PHYSICAL THERAPY ATTENDANT LAB - POINT OF CARE ORDERABLES * INFLUENZA A+B - POINT OF CARE (AMB) (10/19/2019 2:50 PM ARC WELDING MACHINE OPERATOR) Influenza A Antigen Rapid Negative Negative Influenza B Antigen Rapid Negative Negative Influenza Internal Control yes NEGATIVE - POSITIVE Influenza Lot Number [id number] Influenza Expiration Date 01/29/21 Other NASOPHARYNGEAL SWAB / Unknown 10/19/2019 2:50 PM ARC WELDING MACHINE OPERATOR Lakesha E King RADHAPHYSICAL THERAPY ATTENDANT LAB - POINT OF CARE ORDERABLES * CULTURE THROAT (10/08/2018 2:05 PM ARC WELDING MACHINE OPERATOR) Culture [facility]ST Comment: CULTURE, THROAT MICRO NUMBER: [id number] TEST STATUS: FINAL SPECIMEN SOURCE: THROAT SPECIMEN QUALITY: ADEQUATE RESULT: No oropharyngeal pathogens recovered. Test Performed at: [facility] [address] LINDA CARBALLO MD Microbiology ENTIRE THROAT (SURFACE REGION OF NECK) / Unknown 10/08/2018 2:05 PM ARC WELDING MACHINE OPERATOR 10/09/2018 12:43 AM ARC WELDING MACHINE OPERATOR Lakesha E King BILL LAB - MICROBIO LOGY ORDERABLES [address] [address] Care Teams Tire Spotter Relationship Specialty Start Date End Date Chuck Pryor MD [address] [place] [address] PCP - General 06/22/22 Leo Ramos MD [address] [place] [address] [address] [place] [address] Internal Medicine 07/20/17
--- NOTE | 2025-01-02 05:18 | PC.NURSE ---
ASKED PATIENT TO GO TO BATHROOM AND GIVE URINE SAMPLE
--- NOTE | 2025-01-02 05:27 | PC.NURSE ---
URINE TAKEN DOWN TO LAB. DR STALEY AT THE BEDSIDE
--- NOTE | 2025-01-02 05:30 | ECG_ITS ---
Test Date: 2025-01-02 06:06:26 Measurements Intervals [place] Rate: 67 P: 38 WA: 127 QRS: 31 QRSD: 103 T: 28 QT: 429 QTc: 454 Interpretive Statements SINUS RHYTHM Compared to ECG 03/24/2024 00:41:02 No significant changes Electronically Signed On 01-02-2025 16:29:59 CDT by Francisca Bradley M.D.
--- OUTSIDE RECORDS SUMMARY | 2025-01-02 05:48 | XMS_ITS | Referral Summary ---
Author Organization [facility] Address [address] [facility] [place] [address] Care Team Providers Care Shaft Headman Name Role Phone Leo Ramos MD Unavailable [phone] Chuck Pryor MD Primary Care Provider [phone] Source Comments [facility],non-owned Affiliates and Associated Physician Practices is amultiple site organization consisting of ambulatory clinics and hospital sitesin [place], [place], [place] and [place]. This disclosure is being madepursuant to the Care Everywhere program and may not contain all information available regarding this patient. Last updated 18.[facility] [employer] Allergies No known active allergies Medications Be [...] Comments Blood Pressure 124/82 11/03/2019 3:12 PM OCCUPATIONAL HEALTH AND SAFETY MANAGER Pulse 99 11/03/2019 3:12 PM OCCUPATIONAL HEALTH AND SAFETY MANAGER Temperature 36.9 C (98.5 F) 11/03/2019 3:12 PM OCCUPATIONAL HEALTH AND SAFETY MANAGER Respiratory Rate 16 11/03/2019 3:12 PM OCCUPATIONAL HEALTH AND SAFETY MANAGER Oxygen Saturation 100% 11/03/2019 3:12 PM OCCUPATIONAL HEALTH AND SAFETY MANAGER Inhaled Oxygen Concentration - - Weight 103.4 kg (228 lb) 11/03/2019 3:12 PM OCCUPATIONAL HEALTH AND SAFETY MANAGER Height 154.9 cm (5' 1 ) 11/03/2019 3:12 PM OCCUPATIONAL HEALTH AND SAFETY MANAGER Body Mass Index 43.08 11/03/2019 3:12 PM OCCUPATIONAL HEALTH AND SAFETY MANAGER Plan of Treatment Not on file Care Teams Shaft Headman Relationship Specialty Start Date End Date Chuck Pryor MD [facility] [place] [address] PCP - General 06/22/22 Leo Ramos MD [address] [facility] [address] [place] [address] Internal Medicine 07/20/17
--- OUTSIDE RECORDS SUMMARY | 2025-01-02 05:48 | XMS_ITS | Referral Summary ---
Author Organization [facility] [address] [place] Address [address] [place] [address] Care Team Providers Care Level Vial Inspector And Tester Name Role Phone Braeden Luna MD Primary Care Provider Encounters Date Type Department Care Team Description 11/11/[address] [facility] Scheduling [address] [place] [address] Berencie Mims NP from Last 3 Months Allergies [...] Plan of Treatment Not on file Insurance [employer] OOS [email or web address] ACC CHOICE OOS [employer] CHOICE OOS Care Teams Level Vial Inspector And Tester Relationship Specialty Start Date End Date Braeden Luna MD [address] [place] [address] PCP - General Family Medicine 03/25/24
--- OUTSIDE RECORDS SUMMARY | 2025-01-02 05:48 | XMS_ITS | Clinical Summary ---
Author Organization [facility] [address] [place] Address [address] [place] [address] Care Team Providers Care Waiter/Waitress Dining Car Name Role Phone Braeden Luna MD Primary Care Provider [phone] Allergies Active Allergy Reactions Criticality Noted Date [...] Type Department Care Team Description 11/11/2024 Telephone [facility] [address] [place] [address] Berenice Mims NP from Last 3 Months [...] patient's age to complete this topic Insurance [employer] OOS [employer] CHOICE OOS BLUE ACC CHOICE OOS Care Teams Waiter/Waitress Dining Car Relationship Specialty Start Date End Date Braeden Luna MD [address] [place] [address] PCP - General Family Medicine 03/25/24
--- OUTSIDE RECORDS SUMMARY | 2025-01-02 05:48 | XMS_ITS | Clinical Summary ---
Author Organization [facility] Address [address] [place] [address] Phone Care Team Providers Care Database Security Administrator Name Role Phone Unavailable Primary Care Provider [...] STL ABSTRACTION Provider, Abstract 12/22/2024 Orders Only [facility] Neurosurgery [facility] [address] [facility] [address] [place] [phone] Ramses Turner MD Rathke's cleft cyst (Primary Dx); Pituitary mass 12/09/2024 External Device Data STL ABSTRACTION Provider, Abstract 12/08/2024 Telephone [facility] Endocrinology [address] [facility] [address] [place] [address] Rashid Denney MD SURGICAL AIDE appt 11/21/2024 Telephone [facility] Neurosurgery [facility] [address] [facility] [address] [place] [phone] Ramses Turner MD pituitary follow up questions 11/18/2024 External Device Data STL ABSTRACTION Provider, Abstract 11/12/2024 External Device Data STL ABSTRACTION Provider, Abstract 11/12/2024 External Device Data STL ABSTRACTION Provider, Abstract 10/10/2024 Orders Only [facility] Neurosurgery - [facility] [address] [facility] [address] [place] [address] Ramses Turner MD Pituitary mass [...] Sex Assigned at Female 09/25/2024 9:34 PM NURSE EPIDEMIOLOGIST Legal Sex Female 4:09 PM CDT Gender Identity Female 09/25/2024 9:34 PM NURSE EPIDEMIOLOGIST Sexual Orientation Straight 09/25/2024 9: 34 PM NURSE EPIDEMIOLOGIST Last Filed Vital Signs Vital Sign Reading Time Taken Comments Blood Pressure 97/64 09/15/2024 10:40 AM NURSE EPIDEMIOLOGIST Pulse 86 09/15/2024 10:40 AM NURSE EPIDEMIOLOGIST Temperature 36.6 C (97.9 F) 09/15/2024 10:40 AM NURSE EPIDEMIOLOGIST Respiratory Rate - - Oxygen Saturation 97% 09/15/2024 10:40 AM NURSE EPIDEMIOLOGIST Inhaled Oxygen Concentration - - Weight 117.5 kg (259 lb) 09/15/2024 10:40 AM NURSE EPIDEMIOLOGIST Height - - Body Mass Index - - Plan of Treatment Upcoming Encounters Date Type Department Care Team (Late st Contact Info) Description 01/26/2025 11:45 AM CDT Appointment [address] [phone] Ramses Turner MD [address] [facility] [address] [address] -x0 (Work) 03/11/2025 1:00 PM CDT Office Visit [facility] Endocrinology [address] [facility] [address] [place] [phone] Rashid Denney MD [address] [place] [address] Health Maintenance Due Date Last Done Comments HEPATITIS B VACCINES (1 of 3 - 19+ 3-dose series) 2011 CERVICAL CANCER SCREENING 2022 INFLUENZA VACCINE (#1) 2024 07/20/2017 DTAP/TDAP/TD VACCINES (2 - T d or Tdap) 12/12/2027 12/12/2017 HPV VACCINES Aged Out No longer eligi ble based on patient's age to complete this topic Insurance [facility] BLUE ACCESS/TRUE BLUE PPO
--- OUTSIDE RECORDS SUMMARY | 2025-01-02 05:48 | XMS_ITS | Patient Health Summary ---
Author Organization [facility] Address [address] [place] [address] Care Team Providers Care Medical Technologist Name Role Phone Leo Ramos MD Unavailable [phone] Chuck Pryor MD Primary Care Provider [phone] Note from [facility],non-owned Affiliates and Associated Physician Practices is amultiple site organization consisting of ambulatory clinics and hospital sitesin [place], [place], [place] and [place]. This disclosure is being madepursuant to the Care Everywhere program and may not contain all information available regarding this patient. Last updated 18.[facility] Allergies No known active allergies Medications Be [...] Comments Blood Pressure 124/82 11/03/2019 3:12 PM SOCKET WELDER HELPER Pulse 99 11/03/2019 3:12 PM SOCKET WELDER HELPER Temperature 36.9 C (98.5 F) 11/03/2019 3:12 PM SOCKET WELDER HELPER Respiratory Rate 16 11/03/2019 3:12 PM SOCKET WELDER HELPER Oxygen Saturation 100% 11/03/2019 3:12 PM SOCKET WELDER HELPER Inhaled Oxygen Concentration - - Weight 103.4 kg (228 lb) 11/03/2019 3:12 PM SOCKET WELDER HELPER Height 154.9 cm (5' 1 ) 11/03/2019 3:12 PM SOCKET WELDER HELPER Body Mass Index 43.08 11/03/2019 3:12 PM SOCKET WELDER HELPER Procedures * INFLUENZA A+B - POINT OF [...] OF CARE (AMB) STL (10/19/2019 2:50 PM SOCKET WELDER HELPER) Only the most recent of5 resultswithin the time period is included. Strep A Rapid POCT Negative Negative Strep A Internal Control Present Lot # [id number] Expiration Date 01/19/21 Throat ENTIRE THROAT (SURFACE REGION OF NECK) / Unknown 10/19/2019 2:50 PM SOCKET WELDER HELPER Lakesha Gerard APRN-STILL OPERATOR [facility] LAB - POINT OF CARE ORDERABLES * INFLUENZA A+B - POINT OF CARE (AMB) (10/19/2019 2:50 PM SOCKET WELDER HELPER) Influenza A Antigen Rapid Negative Negative Influenza B Antigen Rapid Negative Negative Influenza Internal Control yes NEGATIVE - POSITIVE Influenza Lot Number [id number] Influenza Expiration Date 01/29/21 Other NASOPHARYNGEAL SWAB / Unknown 10/19/2019 2:50 PM SOCKET WELDER HELPER Lakesha E King RADHASTILL OPERATOR [facility] - POINT OF CARE ORDERABLES * CULTURE THROAT (10/08/2018 2:05 PM SOCKET WELDER HELPER) Culture [facility]ST Comment: CULTURE, THROAT MICRO NUMBER: [id number] TEST STATUS: FINAL SPECIMEN SOURCE: THROAT SPECIMEN QUALITY: ADEQUATE RESULT: No oropharyngeal pathogens recovered. Test Performed at: [facility] [address] LINDA CARBALLO MD Microbiology ENTIRE THROAT (SURFACE REGION OF NECK) / Unknown 10/08/2018 2:05 PM SOCKET WELDER HELPER 10/09/2018 12:43 AM SOCKET WELDER HELPER Lakesha E King BILL LAB - MICROBIO LOGY ORDERABLES [address] [address] Care Teams Medical Technologist Relationship Specialty Start Date End Date Chuck Pryor MD [address] [place] [address] PCP - General 06/22/22 Leo Ramos MD [address] [place] [address] 2 [place] [address] Internal Medicine 07/20/17
--- OUTSIDE RECORDS SUMMARY | 2025-01-02 05:48 | XMS_ITS | Clinical Summary ---
Author Organization [facility] Address [address] [facility] [address] Care Team Providers Care Admissions Representative Name Role Phone Leo Ramos MD Unavailable [phone] Chuck Pryor MD Primary Care Provider [phone] Source Comments [facility],non-owned Affiliates and Associated Physician Practices is amultiple site organization consisting of ambulatory clinics and hospital sitesin [place], [place], [place] and [place]. This disclosure is being madepursuant to the Care Everywhere program and may not contain all information available regarding this patient. Last updated 18.[facility] [employer] Allergies No known active allergies Medications Be [...] Comments Blood Pressure 124/82 11/03/2019 3:12 PM MOTORS ASSEMBLER Pulse 99 11/03/2019 3:12 PM MOTORS ASSEMBLER Temperature 36.9 C (98.5 F) 11/03/2019 3:12 PM MOTORS ASSEMBLER Respiratory Rate 16 11/03/2019 3:12 PM MOTORS ASSEMBLER Oxygen Saturation 100% 11/03/2019 3:12 PM MOTORS ASSEMBLER Inhaled Oxygen Concentration - - Weight 103.4 kg (228 lb) 11/03/2019 3:12 PM MOTORS ASSEMBLER Height 154.9 cm (5' 1 ) 11/03/2019 3:12 PM MOTORS ASSEMBLER Body Mass Index 43.08 11/03/2019 3:12 PM MOTORS ASSEMBLER Plan of Treatment Health Maintenance Due Date [...] age to complete this topic Care Teams Admissions Representative Relationship Specialty Start Date End Date Chuck Pryor MD [address] [place] [address] PCP - General 06/22/22 Leo Ramos MD [address] [facility] 2 [place] [address] Internal Medicine 07/20/17
--- NOTE | 2025-01-02 05:51 | PC.NURSE ---
IV ATTEMPT X 2. UNSUCCESSFUL. REQUESTED [facility] RN ATTEMPT IV LINE PLACEMENT
[2025-01-02 05:53] LABS: Basophils Absolute Auto 0.04 K/mm3 (0.00-0.10); Basophils Percent Auto 0.5 % (0.0-1.0); Eosinophils Absolute Auto 0.21 K/mm3 (0.02-0.50); Eosinophils Percent Auto 2.4 % (1.0-6.0); Hematocrit 37.7 % (35.0-49.0); Hemoglobin 12.6 g/dL (12.0-15.0); Immature Granulocyte Absolute 0.02 K/mm3 (0.00-0.00); Immature Granulocyte Percent A 0.2 % (0.0-0.0); Lymphocytes Absolute Auto 3.21 K/mm3 (1.10-4.50); Lymphocytes Percent Auto 36.9 % (18.0-42.0); Mean Corpuscular HGB Conc 33.4 g/dL (32-36); Mean Corpuscular Hemoglobin 29.5 pg (27.0-31.0); Mean Corpuscular Volume 88.3 fL (78.0-102.0); Mean Platelet Volume 11.3 fl (9.2-11.8); Monocytes Absolute Auto 0.49 K/mm3 (0.10-0.90); Monocytes Percent Auto 5.6 % (2.0-11.0); Neutrophils Absolute Auto 4.73 K/mm3 (1.70-7.20); Neutrophils Percent Auto 54.4 % (50.0-70.0); Platelet Count Result 183 K/mm3 (150-420); Red Blood Count 4.27 M/mm3 (4.20-5.40); Red Cell Distribution Width 12.6 % (11.6-14.4); White Blood Count 8.7 K/mm3 (4.8-10.8)
[2025-01-02] MEDS: ONDANSETRON INJ 4 MG/2 ML VIAL IV PUSH (06:01)
[2025-01-02] MEDS: SODIUM CHLORIDE 0.9% IV 1,000 ML 999 ML IV CONT (06:01)
[2025-01-02 06:03] LABS: Add Urine Microscopic? NO; Appearance Urine Clear (Clear); Bilirubin Urine Negative (Negative); Blood Urine Negative (Negative); Color Urine Light Yellow (Yellow); Glucose Urine UA Negative (Negative); Ketones Urine Negative (Negative); Leukocyte Esterase Ur Negative LEU/UL (Negative); Nitrate Urine Negative (Negative); Protein Urine Negative (Negative); Specific Grav Ur >= 1.030 (1.010-1.020); Urobilinogen Urine 0.2 mg/dL (0.2-1.0); pH Urine 5.5 (5.0-8.0)
[2025-01-02 06:06] LABS: Pregnancy On Board Control Positive; Urine Pregnancy Test Negative
--- NOTE | 2025-01-02 06:10 | ED_ITS ---
HPI - Abdominal Pain General Chief Complaint: Abdominal Pain Stated Complaint: Abd Pain Time Seen by Provider: 01/02/25 05:15 Source: patient Mode of arrival: ambulatory Limitations: no limitations History of Present Illness HPI narrative: this is a 34-year-old female who presents with abdominal pain for the last couple weeks little bit worse this morning, with no fever chills no diarrhea constipation no nausea vomiting no flank pain no dysuria or hematuria. MD elicited complaint: abdominal pain Onset (ago): week(s) Severity: mild Quality: aching Radiation: epigastric Related Data Home Medications ?Medication ?Instructions ?Recorded ?Confirmed ?Last Taken ?Type paroxetine HCl 25 mg 25 mg PO DAILY 09/19/23 01/02/25 Unknown History tablet,extended release 24 hr topiramate 25 mg tablet 25 mg PO BID 09/19/23 01/02/25 Unknown History clonazepam 0.5 mg tablet 0.5 mg PO PRN PRN Anxiety 11/22/23 01/02/25 Unknown History Allergies Allergy/AdvReac Type Severity Reaction Status Date / Time iohexol (From contrast - CT, Allergy Hives Verified 01/02/25 05:16 X-RAY) Review of Systems 2 Review of Systems: All systems reviewed & are unremarkable except as noted in HPI and below PMFSH Past Medical History Medical History Diabetes Hyperlipidemia Nausea Depression Anxiety Morbidly obese Surgical History Surgical History History of delivery Family History Family History Grandparent Coronary stent patent Heart attack Diabetes mellitus Grandparent Lung cancer Other Patient's mother is Social History Social History Smoking status: Never smoker Alcohol intake: never Substance use: never Substance use type: does not use Living arrangements: with family Occupation/Education: occupation Gender identity (if verbalized by the patient): Female Spiritual care concerns: No Exam 2 Const: General: healthy appearing and no acute distress Nutritional Appearance: obese Orientation/consciousness: patient oriented x3 L imitations: no limitations HENMT: Head: normal to inspection Neck: Neck: normal visual inspection and no lymphadenopathy Chest: Chest palpation & inspection: normal inspection of the chest Resp: Effort & Inspection: normal respiratory effort Auscultation: clear to auscultation bilaterally Cardio: Rate: regular rate Rhythm: regular rhythm GI: GI Palp: Yes Soft to palpation and Yes Tenderness to palpation present (GI) Auscultation: normal bowel sounds : General: Yes bladder normal to palpation Back/Spine/Pelvis: Back: no CVA tenderness Neuro: General: patient oriented x3, moves all extremities and no meningeal signs Course Vital Signs Vital signs: Vital Signs Temperature 36.4 C 01/02/25 05:05 Pulse Rate 84 01/02/25 05:05 Respiratory Rate 18 01/02/25 05:05 Blood Pressure 111/63 01/02/25 05:05 Pulse Oximetry 99 01/02/25 05:05 Oxygen Delivery Room Air 01/02/25 05:05 Temperature 36.4 C 01/02/25 05:05 Pulse Rate 84 01/02/25 05:05 Respiratory Rate 18 01/02/25 05:05 Blood Pressure 111/63 01/02/25 05:05 Pulse Oximetry 99 01/02/25 05:05 Oxygen Delivery Room Air 01/02/25 05:05 MDM - Abdominal Pain Lab Data 01/02/25 05:49 01/02/25 05:49 Labs: Lab Results 01/02/25 01/02/25 Range/Units 05:49 05:57 WBC 8.7 (4.8-10.8) K/mm3 RBC 4.27 (4.20-5.40) M/mm3 Hgb 12.6 (12.0-15.0) g/dL Hct 37.7 (35.0-49.0) % MCV 88.3 (78.0-102.0) fL MCH 29.5 (27.0-31.0) pg MCHC 33.4 (32-36) g/dL RDW 12.6 (11.6-14.4) % Plt Count 183 (150-420) K/mm3 MPV 11.3 (9.2-11.8) fl Immature Gran % (Auto) 0.2 H (0.0-0.0) % Neut % (Auto) 54.4 (50.0-70.0) % Lymph % (Auto) 36.9 (18.0-42.0) % Haskell % (Auto) 5.6 (2.0-11.0) % Eos % (Auto) 2.4 (1.0-6.0) % Baso % (Auto) 0.5 (0.0-1.0) % Lymph # (Auto) 3.21 (1.10-4.50) K/mm3 Haskell # (Auto) 0.49 (0.10-0.90) K/mm3 Eos # (Auto) 0.21 (0.02-0.50) K/mm3 Baso # (Auto) 0.04 (0.00-0.10) K/mm3 Abs Immat Gran (auto) 0.02 H (0.00-0.00) K/mm3 Absolute Neuts (auto) 4.73 (1.70-7.20) K/mm3 Absolute Nucleated RBC 0.00 (0.00-0.00) K/mm3 Nucleated RBC % 0.0 (0-0.0) % PT Pending INR Pending APTT Pending Sodium Pending Potassium Pending Chloride Pending Carbon Dioxide Pending Anion Gap Pending BUN Pending Creatinine Pending Estim Creat Clear Calc Pending Estimated GFR Pending Glucose Pending Calculated Osmolality Pending Lactic Acid Pending Calcium Pending Total Bilirubin Pending AST Pending ALT Pending Alkaline Phosphatase Pending Troponin I Pending Total Protein Pending Albumin Pending Lipase Pending Urine Color Light yellow (Yellow) Urine Appearance Clear (Clear) Urine pH 5.5 (5.0-8.0) Ur Specific Beauty >= 1.030 H (1.010-1.020) Urine Protein Negative (Negative) Urine Glucose (UA) Negative (Negative) Urine Ketones Negative (Negative) Ur Blood (Man) Negative (Negative) Urine Nitrate Negative (Negative) Urine Bilirubin Negative (Negative) Urine Urobilinogen 0.2 (0.2-1.0) mg/dL Leukocyte Esterase Rfl Negative (Negative) SOBIA/UL Urine Test Negative Critical Care Time Critical Care Time Critical Care Time: No Discharge Plan Discharge Clinical Impression: Abdominal pain Qualifiers: Abdominal location: upper abdomen, unspecified Qualified Code(s): R10.10 - Upper abdominal pain, unspecified GERD (gastroesophageal reflux disease) Qualifiers: Esophagitis presence: without esophagitis Qualified Code(s): K21.9 - Gastro- esophageal reflux disease without esophagitis Patient Disposition: Home, Self-Care Condition: Stable Instructions: Antibiotic Form, GERD (Gastroesophageal Reflux Disease) (ED), Abdominal Pain (ED) Additional Instructions: advised to take medication as prescribed and to follow with primary care physician within 1 week for further evaluation and treatment. Patient Language: Nepalese Prescriptions: New pantoprazole [Protonix] 40 mg tablet,delayed release (DR/EC) 40 mg PO QAM 28 Days Qty: 28 0RF No Action meclizine 25 mg tablet 25 mg PO BID PRN (Reason: dizziness) Qty: 20 0RF topiramate 25 mg tablet 25 mg PO BID paroxetine HCl 25 mg tablet extended release 24 hr 25 mg PO DAILY clonazepam 0.5 mg tablet 0.5 mg PO PRN PRN (Reason: Anxiety) Follow-up/Referrals: Cheryl,Braeden Devlin MD [Primary Care Provider] -
[2025-01-02 06:11] LABS: Partial Thromboplastin Time 28.1 Sec (23.9-30.70); Prothrombin Time 10.8 Seconds (9.50-12.1)
[2025-01-02 06:12] LABS: Lactic Acid Reflex 1.2 mmol/L (0.4-2.0)
[2025-01-02 06:19] LABS: Alanine Aminotransferase 22 U/L (14-59); Albumin Level 3.3 g/dL (3.4-5.0); Alkaline Phosphatase 105 U/L (46-116); Anion Gap 11 mmol/L (4-12); Aspartate Amino Transferase 12 U/L (15-37); Bilirubin,Total 0.3 mg/dL (0.00-1.00); Blood Urea Nitrogen 18 mg/dL (7-18); Calcium 8.8 mg/dL (8.5-10.1); Carbon Dioxide 24 mmol/L (21-32); Chloride 108 mmol/L (98-108); Estimated CRCL calculation 88 ml/min; Estimated Glomerular Filt Rate > 60; Glucose 107 mg/dL (70-99); Lipase 29 U/L (16-77); Osmolality Calculated 297 mOsm/kg (285-295); Potassium 3.7 mmol/L (3.5-5.1); Sodium 143 mmol/L (136-145); Total Protein 6.8 g/dL (6.4-8.2)
[2025-01-02 07:19] VITALS: BP 128/64; PULSE 84; RESP 20; TEMP 36.9; O2SAT 100
== END 2025-01-02 07:20 | disposition home or self-care (01) ==
PROVIDERS: Emergency Provider Emergency Medicine; PCP Family Medicine
DX: K21.9 Gastro-esophageal reflux disease without esophagitis (principal); E11.9 Type 2 diabetes mellitus without complications; E78.5 Hyperlipidemia, unspecified; Z79.899 Other long term (current) drug therapy
CPT/HCPCS: 36415; 74176; 80053; 81003; 81025; 83605; 83690; 84484; 85025; 85610; 85730; 93005; 96361; 96374; 99284; J2405; J7030

== ENCOUNTER 2025-09-07 14:07 | Outpatient (CLI) | payer BC, SELFPAY ==
--- NOTE | ~2025-09-07 | XR_ITS ---
EXAMINATION: XR chest 2V, 09/07/2025 14:20 [employer] HISTORY: R79.82 - Elevated C-reactive protein (CRP) X 1YR COMPARISON: No comparisons available. Technique: 2 views obtained. Findings: The lungs are clear, no effusion. No pneumothorax. Heart is normal size. Mediastinal and hilar contours are within normal limits. Bony thorax no acute abnormality. Impression: No acute cardiopulmonary abnormality. Reviewed, dictated and finalized at location [facility]. [facility] TECHNOLOG[facility] Impression: No acute cardiopulmonary abnormality.
== END 2025-09-07 14:08 | disposition home or self-care (01) ==
PROVIDERS: PCP Family Medicine; Visit Provider Family Medicine
DX: R79.82 Elevated C-reactive protein (CRP) (principal)
CPT/HCPCS: 71046